=== PATIENT | female | born 2000 | race Caucasian/White ===

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

== ENCOUNTER 2022-04-10 17:33 | Emergency (ER) | payer MEDICAID, SELFPAY ==
[2022-04-10 17:35] VITALS: BP 151/93; PULSE 104; RESP 18; TEMP 36.3; O2SAT 98; BMI 44.9
--- NOTE | 2022-04-10 18:44 | CT_ITS ---
EXAM: CT CERVICAL SPINE WITHOUT INTRAVENOUS CONTRAST CLINICAL INDICATION: Injury/Pain TECHNIQUE: Helically acquired images were obtained of the cervical spine without intravenous contrast. 2D reformatted images were reviewed. This CT exam was performed using one or more of the following dose reduction techniques: automated exposure control, adjustment of the mA and/or kV according to patient size, and/or use of iterative reconstruction technique. This report was created using [employer] report generation technology. COMPARISON: None. FINDINGS: VERTEBRAE: There is mild reversal of the normal cervical lordosis. No fracture. No traumatic subluxation. No discrete lytic or blastic abnormality. Normal craniocervical junction and cervicothoracic junction. DISCS/SPINAL CANAL/NEURAL FORAMINA: Unremarkable. Disc heights are preserved. No critical stenosis. SOFT TISSUES: Unremarkable. No prevertebral soft tissue swelling. LYMPH NODES: Unremarkable. No cervical adenopathy. LUNG APICES: Unremarkable as visualized. Clear. CT/Spine Cervical without Contras IMPRESSION: 1. No acute osseous abnormalities. 2. Reversal of the normal cervical lordosis which may be due to a muscular strain. Electronically Signed: Otoniel San MD at 19:52 EST ,
--- NOTE | 2022-04-10 18:44 | CT_ITS ---
EXAM: CT HEAD WITHOUT INTRAVENOUS CONTRAST CLINICAL INDICATION: Injury/Pain TECHNIQUE: Multiple axial images were obtained of the head without intravenous contrast. This CT exam was performed using one or more of the following dose reduction techniques: automated exposure control, adjustment of the mA and/or kV according to patient size, and/or use of iterative reconstruction technique. This report was created using [employer] report generation technology. COMPARISON: 10/11/2020 FINDINGS: BRAIN AND EXTRA-AXIAL SPACES: Unremarkable. No intra- or extra-axial hemorrhage. No evidence of acute infarct. No intracranial mass or mass effect. There is preservation of the fisher/white matter interface. Posterior fossa structures are unremarkable. Ventricles are appropriate for age. No hydrocephalus. Basal cisterns are patent. BONES/JOINTS: Unremarkable. No discrete lytic or blastic abnormalities. SOFT TISSUES: There is a partially calcified subcutaneous nodule over the high left frontal bone which is stable and measures 1 cm. SINUSES: There is a stable retention cyst or polyp in the right maxillary sinus. MASTOID AIR CELLS: Unremarkable. Clear. ORBITS: Visualized globes, extraocular muscles, optic nerves and retrobulbar fat appear unremarkable. CT/Brain/Head without Contrast IMPRESSION: No acute findings in the head/brain. There has been no change from the reference exam. Electronically Signed: Otoniel San MD at 19:51 EST ,
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
== END 2022-04-10 21:06 | disposition home or self-care (01) ==
PROVIDERS: Emergency Provider Emergency Medicine; PCP Family Medicine; Visit Provider Emergency Medicine
DX: S09.90XA Unspecified injury of head, initial encounter (principal); E66.01 Morbid (severe) obesity due to excess calories; S16.1XXA Strain of muscle, fascia and tendon at neck level, initial encounter; M54.9 Dorsalgia, unspecified; V49.40XA Driver injured in collision with unspecified motor vehicles in traffic accident, initial encounter
CPT/HCPCS: 70450; 72125; 99282

== ENCOUNTER → 2022-09-30 | Outpatient (CLI) | payer MEDICAID, SELFPAY ==
[2022-09-30 12:10] LABS: Absolute Lymphocyte Count 2.37 X10^3/uL (0.83-4.51); Absolute Neutrophil Count 5.2 X10^3/uL (2.0-7.7); Basophil# 0.04 X10^3/uL; Basophil% 0.5 % (0-1); Eosinophil# 0.18 X10^3/uL; Eosinophils% 2.1 % (0-5); Hematocrit 40.9 % (37-47); Hemoglobin 13.5 g/dL (12.0-15.0); Lymphocyte # 2.37 X10^3/ul (0.83-4.51); Lymphocyte % 28.2 % (19-41); Mean Corpuscular Hgb 26.8 pg (27.0-32.0); Mean Corpuscular Volume 81.3 fL (81-99); Mean Platelet Vol. 9.7 fl (6.2-12.0); Monocyte# 0.57 X10^3/uL; Monocyte% 6.8 % (0-10); NRBC Flagged by Analyzer 0 % (0-5); Neutrophil # 5.17 X10^3/uL (2.7-7.7); Neutrophil % 61.7 % (47-70); Platelet Count 338 K/mm3 (150-450); RBC Distribution Width CV 12.6 % (11.6-14.6); RBC Distribution Width SD 36.9 fl (35.1-43.9); Red Blood Count 5.03 M/mm3 (4.2-5.4); White Blood Count 8.4 K/mm3 (4.4-11.0)
[2022-09-30 12:51] LABS: Vitamin B12 478 pg/mL (211-911); Vitamin D,25 Hydroxy 14.3 ng/mL
[2022-09-30 12:59] LABS: ALB/GLOB Ratio 0.7 RATIO (0.9-2.4); AST(SGOT) 25 U/L (15-37); Alanine Aminotransfer ALT/SGPT 35 U/L (13-56); Albumin, Serum 3.2 g/dL (3.2-5.0); Alkaline Phosphatase 67 U/L (45-117); Anion Gap 7 (5-15); BUN 17 mg/dL (7-18); Calcium,Total 8.9 mg/dL (8.5-10.1); Chloride 105 mmol/L (98-107); Cholesterol 201 mg/dL (200); Creatinine, Serum 0.74 mg/dL (0.55-1.02); EST Glomerular Filtration Rate 107 mL/min (>60); Est Glom Filt Rate - Afr Amer 129 mL/min (>60); Globulin 4.4 g/dL (2.2-4.2); Glucose 113 mg/dL (74-106); High Density Lipoprotein 33 mg/dL; Potassium 3.7 mmol/L (3.5-5.1); Protein, Total 7.6 g/dL (6.4-8.2); Sodium Level 139 mmol/L (136-145); T4 Free Direct 1.04 ng/dL (0.76-1.46); Thyroid Stim Hormone (TSH) 3.85 uIU/mL (0.358-3.74); Triglycerides 252 mg/dL; Very Low Density Lipoprotein 50 mg/dL (5-40)
== END | disposition home or self-care (01) ==
LOC: MFPLAB 10:01
PROVIDERS: PCP Family Medicine; Visit Provider Family Medicine
DX: R53.83 Other fatigue (principal); E66.01 Morbid (severe) obesity due to excess calories; E55.9 Vitamin D deficiency, unspecified
CPT/HCPCS: 36415; 80053; 80061; 82306; 82607; 84439; 84443; 85025

== ENCOUNTER 2024-08-25 08:21 | Outpatient (CLI) | payer OTHER, SELFPAY ==
--- NOTE | 2024-08-25 08:28 | RAD_ITS ---
PROCEDURE: KNEE 3 VIEWS 08/25/2024 REASON FOR EXAM: PAIN TECHNIQUE: Three-view right knee series and three-view left knee series (combined dictation). COMPARISON: None. RAD/Knee 3 Views IMPRESSION: No joint effusion is seen on either side. On the left, no arthritic process or joint narrowing is seen. No significant o sseous abnormality is evident. On the right, an osteochondroma projects distally from the medial aspect of the proximal right tibial metaphyseal region. No significant arthritic process or joint narrowing is noted. No other significan t osseous abnormality is seen Reading Location: [place] [id number]
--- NOTE | 2024-08-25 08:28 | RAD_ITS ---
PROCEDURE: HAND MIN 3 VIEWS 08/25/2024 REASON FOR EXAM: PAIN TECHNIQUE: HAND MIN 3 VIEWS COMPARISON: None. RAD/Hand Min 3 Views IMPRESSION: No significant arthritic process or joint narrowing is noted on either side. Satisfactory osseous alignment is seen throughout, bilaterally. No fracture, dislocation, or other significant osseous or joint space abnormali ty is seen on either side. Reading Location: [place] [address]
--- NOTE | 2024-08-25 08:28 | RAD_ITS ---
PROCEDURE: HAND MIN 3 VIEWS 08/25/2024 REASON FOR EXAM: PAIN TECHNIQUE: HAND MIN 3 VIEWS COMPARISON: None. RAD/Hand Min 3 Views IMPRESSION: No significant arthritic process or joint narrowing is noted on either side. Satisfactory osseous alignment is seen throughout, bilaterally. No fracture, dislocation, or other significant osseous or joint space abnormali ty is seen on either side. Reading Location: [place] [id number]
--- NOTE | 2024-08-25 08:28 | RAD_ITS ---
PROCEDURE: KNEE 3 VIEWS 08/25/2024 REASON FOR EXAM: PAIN TECHNIQUE: Three-view right knee series and three-view left knee series (combined dictation). COMPARISON: None. RAD/Knee 3 Views IMPRESSION: No joint effusion is seen on either side. On the left, no arthritic process or joint narrowing is seen. No significant o sseous abnormality is evident. On the right, an osteochondroma projects distally from the medial aspect of the proximal right tibial metaphyseal region. No significant arthritic process or joint narrowing is noted. No other significan t osseous abnormality is seen Reading Location: [place] [id number]
--- NOTE | 2024-08-25 08:28 | RAD_ITS ---
PROCEDURE: HIPS B/L MIN 2 VIEWS W/ PELVIS 08/25/2024 REASON FOR EXAM: HIP PAIN TECHNIQUE: HIPS B/L MIN 2 VIEWS W/ PELVIS COMPARISON: None. RAD/Hips B/L min 2 views w/ Pelvis IMPRESSION: Hips and sacroiliac joints appear symmetric and within the normal range. No anshu int narrowing is seen. No evidence of femoral head osteonecrosis. No fracture site is seen. Reading Location: [place] [id number]
[2024-08-25 11:02] LABS: Hematocrit 40.7 % (37-47); Hemoglobin 13.6 g/dL (12.0-15.0); Immature Granulocytes Count 0.050 X10^3/uL (0.0-0.0); Mean Corp Hgb Conc 33.4 g/dL (32-36); Mean Corpuscular Volume 82.4 fL (81-99); Mean Platelet Vol. 10.5 fl (6.2-12.0); NRBC Flagged by Analyzer 0 % (0-5); Platelet Count 314 K/mm3 (150-450); RBC Distribution Width CV 12.8 % (11.6-14.6); RBC Distribution Width SD 38.1 fl (35.1-43.9); Red Blood Count 4.94 M/mm3 (4.2-5.4); White Blood Count 10.1 K/mm3 (4.4-11.0)
[2024-08-25 12:38] LABS: AST(SGOT) 31 U/L (<=31); Alanine Aminotransfer ALT/SGPT 29 U/L (<=34); Albumin, Serum 4.0 g/dL (3.5-5.0); Alkaline Phosphatase 61 U/L (35-104); Anion Gap 14 (5-15); BUN 13 mg/dL (4-19); BUN/Creat Ratio 18.8 RATIO (10-20); Calcium,Total 9.4 mg/dL (7.6-11.0); Carbon Dioxide 22.9 mmol/L (21.0-32.0); Chloride 101 mmol/L (98-108); Globulin 3.0 g/dL (2.2-4.2); Glucose 112 mg/dL (70-99); Potassium 4.1 mmol/L (3.3-5.1); Vitamin D,25 Hydroxy 18.6 ng/mL (30-100)
[2024-08-26 15:08] LABS: Lyme Scn Total Ab w/Rflx Negative (Negative)
[2024-08-26 16:09] LABS: ANTINUCLEAR ANTIBODIES DIRECT Negative (Negative)
== END 2024-08-25 23:59 | disposition home or self-care (01) ==
LOC: MTLAB 08:25
PROVIDERS: PCP Family Medicine; Referring Provider Family Medicine; Visit Provider Family Medicine
DX: M25.551 Pain in right hip (principal); M25.552 Pain in left hip; M79.641 Pain in right hand; M79.642 Pain in left hand; M25.561 Pain in right knee; M25.562 Pain in left knee; E55.9 Vitamin D deficiency, unspecified; R79.89 Other specified abnormal findings of blood chemistry
CPT/HCPCS: 36415; 73130; 73521; 73562; 80053; 82306; 84439; 84443; 85025; 85652; 86038; 86376; 86431; 86618; 86800

== ENCOUNTER → 2024-12-24 | Outpatient (CLI) | payer OTHER, SELFPAY ==
--- NOTE | 2024-12-24 09:29 | RAD_ITS ---
PROCEDURE: RAD/Lumbar Spine 2 or 3 Views
--- NOTE | 2024-12-24 09:29 | RAD_ITS ---
PROCEDURE: RAD/Cerv Spine 2 or 3 Views
[2024-12-24 13:11] LABS: Vitamin B12 632 pg/mL (180-914)
[2024-12-30 08:09] LABS: VITAMIN B6 35.1 ug/L (3.4-65.2); Vitamin B1, Thiamine 149.3 nmol/L (66.5-200.0)
== END | disposition home or self-care (01) ==
LOC: MTLAB 09:29
PROVIDERS: PCP Family Medicine; Referring Provider Family Medicine; Visit Provider Family Medicine
DX: M54.50 Low back pain, unspecified (principal); M54.2 Cervicalgia; G62.9 Polyneuropathy, unspecified
CPT/HCPCS: 36415; 72040; 72100; 82607; 84207; 84425

== ENCOUNTER → 2024-12-28 | Outpatient (CLI) | payer OTHER, SELFPAY ==
--- NOTE | 2024-12-28 16:34 | RAD_ITS ---
PROCEDURE: RAD/Acute Abdomen Inc Chest
[2024-12-28 17:37] LABS: Hematocrit 40.8 % (37-47); Hemoglobin 13.8 g/dL (12.0-15.0); Immature Granulocytes Count 0.060 X10^3/uL (0.0-0.0); Mean Corp Hgb Conc 33.8 g/dL (32-36); Mean Corpuscular Volume 82.9 fL (81-99); Mean Platelet Vol. 10.2 fl (6.2-12.0); NRBC Flagged by Analyzer 0 % (0-5); Platelet Count 403 K/mm3 (150-450); RBC Distribution Width CV 12.4 % (11.6-14.6); RBC Distribution Width SD 37.5 fl (35.1-43.9); Red Blood Count 4.92 M/mm3 (4.2-5.4); White Blood Count 13.1 K/mm3 (4.4-11.0)
[2024-12-28 18:15] LABS: AST(SGOT) 33 U/L (<=31); Alanine Aminotransfer ALT/SGPT 36 U/L (<=34); Albumin, Serum 4.3 g/dL (3.5-5.0); Alkaline Phosphatase 62 U/L (35-104); Anion Gap 11 (5-15); BUN 15 mg/dL (4-19); BUN/Creat Ratio 21.6 RATIO (10-20); Calcium,Total 9.4 mg/dL (7.6-11.0); Carbon Dioxide 25.9 mmol/L (21.0-32.0); Chloride 99 mmol/L (98-108); Globulin 3.0 g/dL (2.2-4.2); Glucose 90 mg/dL (70-99); Magnesium 2.0 mg/dL (1.5-2.2); Potassium 4.4 mmol/L (3.3-5.1)
[2024-12-30 17:08] LABS: Immunoglobulin A 207 mg/dL (87-352)
[2025-01-02 16:08] LABS: Egg, Whole 0.10 kU/L (Class 0/I); Mussels <0.10 kU/L (Class 0)
== END | disposition home or self-care (01) ==
LOC: MTLAB 16:34
PROVIDERS: PCP Family Medicine; Referring Provider Family Medicine; Visit Provider Family Medicine
DX: R10.9 Unspecified abdominal pain (principal); R19.7 Diarrhea, unspecified
CPT/HCPCS: 36415; 74022; 80053; 82784; 83516; 83735; 84443; 85025; 86003; 86005; 86255

== ENCOUNTER → 2025-01-18 | Outpatient (CLI) | payer OTHER, SELFPAY ==
[2025-01-21 11:08] LABS: Fats, Neutral Normal (.); Fats, Total Normal (.)
[2025-01-23 23:07] LABS: Pancreatic Elastase, Fecal > 800 (>200)
== END | disposition home or self-care (01) ==
LOC: LAB 13:10
PROVIDERS: PCP Family Medicine; Referring Provider Family Medicine; Visit Provider Family Medicine
DX: R19.7 Diarrhea, unspecified (principal)
CPT/HCPCS: 82653; 82705; 83630; 87177; 87209; 87506

== ENCOUNTER 2025-02-05 01:05 | Emergency (ER) | payer OTHER, SELFPAY ==
[2025-02-05 01:05] VITALS: PULSE 107; RESP 14; TEMP 36.1; O2SAT 100; BMI 53.1
--- NOTE | 2025-02-05 01:11 | ED.RN ---
unclear what the pt may have come in contact with as well as what they allergic symptoms are.
[2025-02-05 01:13] VITALS: BP 140/97
--- OUTSIDE RECORDS SUMMARY | 2025-02-05 01:20 | XMS RPT_ITS | CCD ---
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 Info: 3016-3 - TSH Performed By: #### L 501.9520 ####[facility] [address] [place], [place], [address] Cerv Spine 2 or 3 Viewson Cerv Spine 2 or [address] [facility] Imaging Services [address] [place], [place] [address] Cerv Spine 2 or 3 Views MR#: [id number] Acct: [id number] Name: TEMI SCHROEDER Rep #: [id number] : 2000 F 24 From: Verna Mercedes PCP: Dr. Kofi Stapleton MD Status: REG CLI Study: Cerv Spine 2 or 3 Views Date of Exam: 12/24/24 Exam# [id number] Ordering Dr: Kofi Stapleton MD PROCEDURE: CERV SPINE 2 OR 3 VIEWS 12/24/2024 REASON FOR EXAM: PAIN, NEUROPATHY TECHNIQUE: Procedure Code: RADSPCL Modality: DX Procedure: CERV SPINE 2 OR 3 VIEWS FINDINGS: No acute cervical fracture or subluxations. No significant degenerative changes No acute soft tissue abnormalities. No radiographic foreign body. RAD/Cerv Spine 2 or 3 Views IMPRESSION: No acute cervical fracture or subluxations. Consider CT if the symptoms persist. Reading Location: [facility] CC: Dr. Kofi Stapleton MD Pathology Technologist: Signed Normal [facility] Lumbar Spine 2 or 3 Viewson 12-24-2024 Lumbar Spine 2 or [address] [facility] Imaging Services [address] [place], [place] [address] Lumbar Spine 2 or 3 Views MR#: [id number] Acct: [id number] Name: TEMI SCHROEDER Rep #: [id number] : 2000 F 24 From: Randy Mercedes PCP: Dr. Kofi Stapleton MD Status: REG CLI Study: Lumbar Spine 2 or 3 Views Date of Exam: Exam# [id number] Ordering Dr: Kofi Stapleton MD PROCEDURE: LUMBAR SPINE 2 OR 3 VIEWS 12/24/2024 REASON FOR EXAM: PAIN, NEUROPATHY TECHNIQUE: Procedure Code: RADSPLL Modality: DX Procedure: LUMBAR SPINE 2 OR 3 VIEWS COMPARISON: None. RAD/Lumbar Spine 2 or 3 Views IMPRESSION: A mild degree of lumbar gentle dextro rotoscoliosis is seen. No significant degenerative disc disease or disc space narrowing is noted. No evidence of spondylolysis or spondylolisthesis. Sacroiliac joints appear symmetric and within the normal range. Reading Location: [place] [address] CC: Dr. Kofi Stapleton MD Pathology Technologist: Signed Normal [facility] Vitamin B12on 12-24-2024 Cobalamin (Vitamin B12) [Mass/Vol] 632 pg/mL Normal 180-914 [facility] Comment on above: Performed By: #### L 3300.8000, L3300.8200, L503.0106 ####[facility] [address] [place], [place], [address] ANTINUCLEAR ANTIBODIES DIREC Ton 08-26-2024 DALIA,DIRECT Negative Normal Negative [facility] Comment on above: Order Comment: Order Date: 08/25/24Order Info: 0270-1 - ANAComments: with comprehensive reflex if positive Result Comment: Perf ormed at: [facility] [id number] [place], [place] [id number] Accounts Supervisor: Devin Carranza PhD, Phone: [phone] Performed By: #### L 3100.5475, L501.9520, L505.7010, L506.0400, L7000.5300, L100.0100, L500.4050 ####[facility] [address] [place], [place], [id number] Lyme Screen W/Reflex WBon LYME SCREEN Ab Negative Normal Negative [facility] Comment on above: Order Comment: Order Date: 08/25/24Order Info: 9586-9 - LYMS Result Comment: Lyme antibodies not detected. Reflex testing is not indicated. No laboratory evidence of infection with B. burgdorferi (Lyme disease). Negative results may occur in patients recently infected (less than or equal to 14 days) with B. burgdorferi. If recent infection is suspected, repeat testing on a new sample collected in 7 to 14 days is recommended. Performed By: #### L 3100.5475, L501.9520, L505.7010, L506.0400, L7000.5300, L100.0100, L500.4050 ####[facility] [address] [place], [place], [address] Thyroid Antibodieson 025 TG AB 1.1 IU/mL High 0.0-0.9 [facility] Comment on above: Order Comment: Order Date: 08/25/24Order Info: 9586-9 - LYMS Result Comment: Thyr oglobulin Antibody measured by [facility] It should be noted that the presence of thyroglobulin antibodies may not be pathogenic nor diagnostic, especially at very low levels. The assay electrotherapist has found that four percent of individuals without evidence of thyroid disease or autoimmunity will have positive TgAb levels up to 4 IU/mL. Performed at: [facility] [id number] [place], [place] [id number] Accounts Supervisor: Devin Carranza PhD, Phone: [phone] Performed By: #### L 101.9900, L506.1001, L3300.6750 ####[facility] [address] [place], [place], [id number] THYR PEROX AB < 9 Normal 0-34 [facility] Comment on above: Order Comment: Order Date: 08/25/24Order Info: 9586-9 - LYMS Performed By: #### L 101.9900, L506.1001, L3300.6750 ####[facility] [address] [place], [place], [address] Absolute lymphocyte countOrd ered By: Kofi Stapleton on 08-25-2024 Lymphocytes Auto (Unsp spec) [#/Vol] 2.60 10*3/uL 0.83-4.51 [facility] Absolute neutrophil countOrd ered By: Kofi Stapleton on 08-25-2024 Neutrophils (Bld) [#/Vol] 6.5 10*3/uL 2.0-7.7 [facility] Anion gap in Serum or Plasma Ordered By: Kofi Stapleton on 08-25-2024 Anion gap [Moles/Vol] 14 mmol/L 5-15 [facility] Automated lymphocyte count a s percentage of total leukocytesOrdered By: Kofi Stapleton on 08-25-2024 Lymphocytes/100 WBC Auto (Unsp spec) 25.7 % 19-41 [facility] BUN/creatinine ratioOrdered By: Kofi Stapleton on 08-25-2024 Urea nitrogen/Creatinine [Mass ratio] 18.8 mg/mg 10-20 [facility] Basophil percentageOrdered B y: Kofi Stapleton on 08-25-2024 Basophils/100 WBC (Bld) 0.6 % 0-1 [facility] Bilirubin, totalOrdered By: Kofi Stapleton on 08-25-2024 Bilirubin [Mass/Vol] 0.19 mg/dL 0.00-1.30 [facility] CBC W/Diff, Automatedon Absolute Lymph 2.60 X10 3/uL Normal 0.83-4.51 [facility] Comment on above: Order Comment: Order Date: 08/25/24Order Info: 0184-1 - CBCD Performed By: #### L 3100.5475, L501.9520, L505.7010, L506.0400, L7000.5300, L100.0100, L500.4050 ####[facility] [address] [place], [address] Absolute Neut 6.5 X10 3/uL Normal 2.0-7.7 [facility] Comment on above: Order Comment: Order Date: 08/25/24Order Info: 0184-1 - CBCD Performed By: #### L 3100.5475, L501.9520, L505.7010, L506.0400, L7000.5300, L100.0100, L500.4050 ####[facility] [address] [place], [address] Basophils/100 WBC (Bld) 0.6 % Normal 0-1 [facility] Comment on above: Order Comment: Order Date: 08/25/24Order Info: 0184-1 - CBCD Performed By: #### L 3100.5475, L501.9520, L505.7010, L506.0400, L7000.5300, L100.0100, L500.4050 ####[facility] [address] [place], [address] Eosinophils/100 WBC (Bld) 2.7 % Normal 0-5 [facility] Comment on above: Order Comment: Order Date: 08/25/24Order Info: 0184-1 - CBCD Performed By: #### L 3100.5475, L501.9520, L505.7010, L506.0400, L7000.5300, L100.0100, L500.4050 ####[facility] [address] [place], [address] Erythrocyte distribution width (RBC) [Ratio] 12.8 % Normal 11.6-14.6 [facility] Comment on above: Order Comment: Order Date: 08/25/24Order Info: 0184-1 - CBCD Performed By: #### L 3100.5475, L501.9520, L505.7010, L506.0400, L7000.5300, L100.0100, L500.4050 ####[facility] [address] [place], [address] Hematocrit (Bld) [Volume fraction] 40.7 % Normal 37-47 [facility] Comment on above: Order Comment: Order Date: 08/25/24Order Info: 0184-1 - CBCD Performed By: #### L 3100.5475, L501.9520, L505.7010, L506.0400, L7000.5300, L100.0100, L500.4050 ####[facility] [address] [place], [address] Hemoglobin (Bld) [Mass/Vol] 13.6 g/dL Normal 12.0-15.0 [facility] Comment on above: Order Comment: Order Date: 08/25/24Order Info: 0184-1 - CBCD Performed By: #### L 3100.5475, L501.9520, L505.7010, L506.0400, L7000.5300, L100.0100, L500.4050 ####[facility] [address] [place], [address] IG% 0.500 Normal 0.0-0.9 [facility] Comment on above: Order Comment: Order Date: 08/25/24Order Info: 0184-1 - CBCD Result Comment: IG% - Immature Granulocytes (promyelocytes, myelocytes and metamyelocytes) > 1% indicates that a LEFT SHIFT is Present. Performed By: #### L 3100.5475, L501.9520, L505.7010, L506.0400, L7000.5300, L100.0100, L500.4050 ####[facility] [address] [place], [address] Lymphocytes/100 WBC (Bld) 25.7 % Normal 19-41 [facility] Comment on above: Order Comment: Order Date: 08/25/24Order Info: 0184-1 - CBCD Performed By: #### L 3100.5475, L501.9520, L505.7010, L506.0400, L7000.5300, L100.0100, L500.4050 ####[facility] [address] [place], [address] MCH (RBC) [Entitic mass] 27.5 pg Normal 27.0-32.0 [facility] Comment on above: Order Comment: Order Date: 08/25/24Order Info: 0184-1 - CBCD Performed By: #### L 3100.5475, L501.9520, L505.7010, L506.0400, L7000.5300, L100.0100, L500.4050 ####[facility] [address] [place], [address] MCHC (RBC) [Mass/Vol] 33.4 g/dL Normal 32-36 [facility] Comment on above: Order Comment: Order Date: 08/25/24Order Info: 0184-1 - CBCD Performed By: #### L 3100.5475, L501.9520, L505.7010, L506.0400, L7000.5300, L100.0100, L500.4050 ####[facility] [address] [place], [address] MCV (RBC) [Entitic vol] 82.4 fL Normal 81-99 [facility] Comment on above: Order Comment: Order Date: 08/25/24Order Info: 0184-1 - CBCD Performed By: #### L 3100.5475, L501.9520, L505.7010, L506.0400, L7000.5300, L100.0100, L500.4050 ####[facility] [address] [place], [address] Monocytes/100 WBC (Bld) 6.7 % Normal 0-10 [facility] Comment on above: Order Comment: Order Date: 08/25/24Order Info: 0184-1 - CBCD Performed By: #### L 3100.5475, L501.9520, L505.7010, L506.0400, L7000.5300, L100.0100, L500.4050 ####[facility] [address] [place], [address] Neutrophils/100 WBC (Bld) 63.8 % Normal 47-70 [facility] Comment on above: Order Comment: Order Date: 08/25/24Order Info: 0184-1 - CBCD Performed By: #### L 3100.5475, L501.9520, L505.7010, L506.0400, L7000.5300, L100.0100, L500.4050 ####[facility] [address] [place], [address] Nucleated RBC (Bld) [#/Vol] 0 10*3/uL Normal 0-5 [facility] Comment on above: Order Comment: Order Date: 08/25/24Order Info: 0184-1 - CBCD Performed By: #### L 3100.5475, L501.9520, L505.7010, L506.0400, L7000.5300, L100.0100, L500.4050 ####[facility] [address] [place], [address] Platelet mean volume (Bld) [Entitic vol] 10.5 fL Normal 6.2-12.0 [facility] Comment on above: Order Comment: Order Date: 08/25/24Order Info: 0184-1 - CBCD Performed By: #### L 3100.5475, L501.9520, L505.7010, L506.0400, L7000.5300, L100.0100, L500.4050 ####[facility] [address] [place], [address] Platelets (Bld) [#/Vol] 314 10*3/uL Normal 150-450 [facility] Comment on above: Order Comment: Order Date: 08/25/24Order Info: 0184-1 - CBCD Performed By: #### L 3100.5475, L501.9520, L505.7010, L506.0400, L7000.5300, L100.0100, L500.4050 ####[facility] [address] [place], [address] RBC (Bld) [#/Vol] 4.94 10*6/uL Normal 4.2-5.4 [facility] Comment on above: Order Comment: Order Date: 08/25/24Order Info: 0184-1 - CBCD Performed By: #### L 3100.5475, L501.9520, L505.7010, L506.0400, L7000.5300, L100.0100, L500.4050 ####[facility] [address] [place], [address] RDW SD 38.1 fl Normal 35.1-43.9 [facility] Comment on above: Order Comment: Order Date: 08/25/24Order Info: 0184-1 - CBCD Performed By: #### L 3100.5475, L501.9520, L505.7010, L506.0400, L7000.5300, L100.0100, L500.4050 ####[facility] [address] [place], [address] WBC (Bld) [#/Vol] 10.1 10*3/uL Normal 4.4-11.0 [facility] Comment on above: Order Comment: Order Date: 08/25/24Order Info: 0184-1 - CBCD Performed By: #### L 3100.5475, L501.9520, L505.7010, L506.0400, L7000.5300, L100.0100, L500.4050 ####[facility] [address] [place], [address] Carbon dioxide, total [Moles /volume] in Central venous bloodOrdered By: Kofi Stapleton on 08-25-2024 CO2 [Moles/Vol] 22.9 mmol/L 21.0-32.0 [facility] Chloride assayOrdered By: Shasha Stapleton on 08-25-2024 Chloride [Moles/Vol] 101 mmol/L 98-108 [facility] Comprehensive Metabolic Prof ilon 08-25-2024 Albumin [Mass/Vol] 4.0 g/dL Normal 3.5-5.0 [facility] Comment on above: Order Comment: Order Date: 08/25/24Order Info: 0786-1 - CMPOrder Info: 3016-3 - TSHOrder Info: 72694-9 - RAOrder Info: 3024-7 - U5Muvpr comprehensive reflex if positive Performed By: #### L 3100.5475, L501.9520, L505.7010, L506.0400, L7000.5300, L100.0100, L500.4050 ####[facility] [address] [place], [address] Albumin/Globulin [Mass ratio] 1.3 {ratio} Normal 0.9-2.4 [facility] Comment on above: Order Comment: Order Date: 08/25/24Order Info: 0786-1 - CMPOrder Info: 3016-3 - TSHOrder Info: 27969-1 - RAOrder Info: 3024-7 - N5Qsudz comprehensive reflex if positive Performed By: #### L 3100.5475, L501.9520, L505.7010, L506.0400, L7000.5300, L100.0100, L500.4050 ####[facility] [address] [place], [place], [phone]) ALK PHOS 61 U/L Normal 35-104 [facility] Comment on above: Order Comment: Order Date: 08/25/24Order Info: 0786-1 - CMPOrder Info: 3015-3 - TSHOrder Info: 17180-2 - RAOrder Info: 302-7 - F9Mdajw comprehensive reflex if positive Performed By: #### L 3100.5475, L501.9520, L505.7010, L506.0400, L7000.5300, L100.0100, L500.4050 ####[facility] [address] [place], [address] ALT [Catalytic activity/Vol] 29 U/L Normal <=34 [facility] Comment on above: Order Comment: Order Date: 08/25/24Order Info: 785-1 - CMPOrder Info: 3 - TSHOrder Info: [id number] - RAOrder Info: 302-7 - S4Wyveg comprehensive reflex if positive Performed By: #### L 3100.5475, L501.9520, L505.7010, L506.0400, L7000.5300, L100.0100, L500.4050 ####[facility] [address] [place], [address] AST [Catalytic activity/Vol] 31 U/L Normal <=31 [facility] Comment on above: Order Comment: Order Date: 08/25/24Order Info: 0786-1 - CMPOrder Info: 3 - TSHOrder Info: [id number] - RAOrder Info: 302-7 - R3Mtxud comprehensive reflex if positive Performed By: #### L 3100.5475, L501.9520, L505.7010, L506.0400, L7000.5300, L100.0100, L500.4050 ####[facility] [address] [place], [address] Bilirubin [Mass/Vol] 0.19 mg/dL Normal 0.00-1.30 [facility] Comment on above: Order Comment: Order Date: 08/25/24Order Info: 86-1 - CMPOrder Info: 3 - TSHOrder Info: [id number] - RAOrder Info: 3024-7 - K7Jhvcr comprehensive reflex if positive Performed By: #### L 3100.5475, L501.9520, L505.7010, L506.0400, L7000.5300, L100.0100, L500.4050 ####[facility] [address] [place], [address] BUN/CRE 18.8 RATIO Normal 10-20 [facility] Comment on above: Order Comment: Order Date: 08/25/24Order Info: 785-1 - CMPOrder Info: 3 - TSHOrder Info: [id number] - RAOrder Info: 3024-7 - D9Ddtmh comprehensive reflex if positive Performed By: #### L 3100.5475, L501.9520, L505.7010, L506.0400, L7000.5300, L100.0100, L500.4050 ####[facility] [address] [place], [address] Calcium [Mass/Vol] 9.4 mg/dL Normal 7.6-11.0 [facility] Comment on above: Order Comment: Order Date: 08/25/24Order Info: 785-1 - CMPOrder Info: 3 - TSHOrder Info: 04543-7 - RAOrder Info: 3024-7 - X3Kmryw comprehensive reflex if positive Performed By: #### L 3100.5475, L501.9520, L505.7010, L506.0400, L7000.5300, L100.0100, L500.4050 ####[facility] [address] [place], [address] Chloride [Moles/Vol] 101 mmol/L Normal 98-108 [facility] Comment on above: Order Comment: Order Date: 08/25/24Order Info: 86-1 - CMPOrder Info: 3 - TSHOrder Info: [id number] - RAOrder Info: 3024-7 - V9Wgyta comprehensive reflex if positive Performed By: #### L 3100.5475, L501.9520, L505.7010, L506.0400, L7000.5300, L100.0100, L500.4050 ####[facility] [address] [place], [address] CO2 [Moles/Vol] 22.9 mmol/L Normal 21.0-32.0 [facility] Comment on above: Order Comment: Order Date: 08/25/24Order Info: 0786-1 - CMPOrder Info: 3 - TSHOrder Info: [id number] - RAOrder Info: 3024-7 - D2Aydoy comprehensive reflex if positive Performed By: #### L 3100.5475, L501.9520, L505.7010, L506.0400, L7000.5300, L100.0100, L500.4050 ####[facility] [address] [place], [address] Creatinine [Mass/Vol] 0.67 mg/dL Low 0.70-1.20 [facility] Comment on above: Order Comment: Order Date: 08/25/24Order Info: [id number] - CMPOrder Info: 3 - TSHOrder Info: [id number] - RAOrder Info: 3024-7 - I7Xzsyr comprehensive reflex if positive Performed By: #### L 3100.5475, L501.9520, L505.7010, L506.0400, L7000.5300, L100.0100, L500.4050 ####[facility] [address] [place], [address] GAP 14 Normal 5-15 [facility] Comment on above: Order Comment: Order Date: 08/25/24Order Info: [id number] - CMPOrder Info: 3 - TSHOrder Info: [id number] - RAOrder Info: 3024-7 - F7Bmzrq comprehensive reflex if positive Performed By: #### L 3100.5475, L501.9520, L505.7010, L506.0400, L7000.5300, L100.0100, L500.4050 ####[facility] [address] [place], [address] GFR/1.73 sq M.predicted among non-blacks MDRD (S/P/Bld) [Vol rate/Area] 128 mL/min/{1.73_m2} Normal >60 [facility] Comment on above: Order Comment: Order Date: 08/25/24Order Info: [id number] - CMPOrder Info: [id number] - TSHOrder Info: [id number] - RAOrder Info: 3024-7 - H4Fpxpd comprehensive reflex if positive Result Comment: mL/m in/1.73m2 CKD-EPI Creatinine Equation (2020) Performed By: #### L 3100.5475, L501.9520, L505.7010, L506.0400, L7000.5300, L100.0100, L500.4050 ####[facility] [address] [place], [address] Globulin (S) [Mass/Vol] 3.0 g/dL Normal 2.2-4.2 [facility] Comment on above: Order Comment: Order Date: 08/25/24Order Info: 0786-1 - CMPOrder Info: [id number] - TSHOrder Info: [id number] - RAOrder Info: 3024-7 - K7Jgynf comprehensive reflex if positive Performed By: #### L 3100.5475, L501.9520, L505.7010, L506.0400, L7000.5300, L100.0100, L500.4050 ####[facility] [address] [place], [address] Glucose [Mass/Vol] 112 mg/dL High 70-99 [facility] Comment on above: Order Comment: Order Date: 08/25/24Order Info: 0786-1 - CMPOrder Info: [id number] - TSHOrder Info: [id number] - RAOrder Info: 302-7 - B7Axkbt comprehensive reflex if positive Performed By: #### L 3100.5475, L501.9520, L505.7010, L506.0400, L7000.5300, L100.0100, L500.4050 ####[facility] [address] [place], [address] Potassium [Moles/Vol] 4.1 mmol/L Normal 3.3-5.1 [facility] Comment on above: Order Comment: Order Date: 08/25/24Order Info: 785-1 - CMPOrder Info: [id number] - TSHOrder Info: [id number] - RAOrder Info: 3027 - Q3Bjzet comprehensive reflex if positive Performed By: #### L 3100.5475, L501.9520, L505.7010, L506.0400, L7000.5300, L100.0100, L500.4050 ####[facility] [address] [place], [address] Sodium [Moles/Vol] 138 mmol/L Normal 133-145 [facility] Comment on above: Order Comment: Order Date: 08/25/24Order Info: 785-1 - CMPOrder Info: 3 - TSHOrder Info: [id number] - RAOrder Info: 7 - Z9Tdxju comprehensive reflex if positive Performed By: #### L 3100.5475, L501.9520, L505.7010, L506.0400, L7000.5300, L100.0100, L500.4050 ####[facility] [address] [place], [address] T PROT 7.0 g/dL Normal 5.9-8.4 [facility] Comment on above: Order Comment: Order Date: 08/25/24Order Info: 785-1 - CMPOrder Info: [id number] - TSHOrder Info: [id number] - RAOrder Info: 302-7 - G8Zlmzc comprehensive reflex if positive Performed By: #### L 3100.5475, L501.9520, L505.7010, L506.0400, L7000.5300, L100.0100, L500.4050 ####[facility] [address] [place], [address] Urea nitrogen [Mass/Vol] 13 mg/dL Normal 4-19 [facility] Comment on above: Order Comment: Order Date: 08/25/24Order Info: 0786-1 - CMPOrder Info: [id number] - TSHOrder Info: [id number] - RAOrder Info: 3024-7 - K6Parqi comprehensive reflex if positive Performed By: #### L 3100.5475, L501.9520, L505.7010, L506.0400, L7000.5300, L100.0100, L500.4050 ####[facility] [address] [place], [address] Eosinophil percentageOrdered By: Kofi Stapleton on 08-25-2024 Eosinophils/100 WBC (Bld) 2.7 % 0-5 [facility] Erythrocyte Sed Rateon 08-25 SED RATE 24 mm/hr Normal 0-30 [facility] Comment on above: Order Comment: Order Date: 08/25/24 Order Info: 0184-1 - CBCD Performed By: #### L 101.9900, L506.1001, L3300.6750 #### [facility] Laboratory [address] [place], [place], [address] Erythrocyte distribution wid th ratioOrdered By: Kofi Stapleton on 08-25-2024 Erythrocyte distribution width (RBC) [Ratio] 12.8 % 11.6-14.6 [facility] Erythrocyte distribution wid th standard deviationOrdered By: Kofi Stapleton on 08-25-2024 Erythrocyte distribution width (RBC) [Ratio] 38.1 fl 35.1-43.9 [facility] Erythrocyte sedimentation ra teOrdered By: Kofi Stapleton on 08-25-2024 ESR (Bld) [Velocity] 24 mm/h 0-30 [facility] Glomerular filtration rate ( GFR) estimation/1.73 sq m using serum, plasma, or whole bOrdered By: Kofi Stapleton on 08-25-2024 GFR/1.73 sq M.predicted among non-blacks MDRD (S/P/Bld) [Vol rate/Area] 128 mL/min/{1.73_m2} >60 [facility] Comment on above: mL/min/1.73m2 CKD-EP I Creatinine Equation (2020) Hand Min 3 Viewson Hand Min 3 Views [facility] [address] [place], [place] [id number] Hand Min 3 Views MR#: [id number] Acct: [id number] Name: TEMI SCHROEDER Rep #: [id number] : 2000 F 23 From: Randy Mercedes PCP: Dr. Kofi Stapleton MD Status: REG CLI Study: Hand Min 3 Views Date of Exam: 08/25/24 Exam# [id number] Ordering Dr: Kofi Stapleton MD PROCEDURE: HAND MIN 3 VIEWS 08/25/2024 REASON FOR EXAM: PAIN TECHNIQUE: HAND MIN 3 VIEWS COMPARISON: None. RAD/Hand Min 3 Views IMPRESSION: No significant arthritic process or joint narrowing is noted on either side. Satisfactory osseous alignment is seen throughout, bilaterally. No fracture, dislocation, or other significant osseous or joint space abnormality is seen on either side. Reading Location: [place] [address] CC: Dr. Kofi Stapleton MD Pathology Technologist: Signed Normal [facility] Hand Min 3 Views [facility] [address] [place], [place] [id number] Hand Min 3 Views MR#: [id number] Acct: [id number] Name: TEMI SCHROEDER Rep #: [id number] : 2000 F 23 From: Randy Mercedes PCP: Dr. Kofi Stapleton MD Status: REG CLI Study: Hand Min 3 Views Date of Exam: 08/25/24 Exam# [id number] Ordering Dr: Kofi Stapleton MD PROCEDURE: HAND MIN 3 VIEWS 08/25/2024 REASON FOR EXAM: PAIN TECHNIQUE: HAND MIN 3 VIEWS COMPARISON: None. RAD/Hand Min 3 Views IMPRESSION: No significant arthritic process or joint narrowing is noted on either side. Satisfactory osseous alignment is seen throughout, bilaterally. No fracture, dislocation, or other significant osseous or joint space abnormality is seen on either side. Reading Location: [place] [address] CC: Dr. Kofi Stapleton MD Pathology Technologist: Signed Normal [facility] Hematocrit Auto (Bld) [Volum e fraction]Ordered By: Kofi Stapleton on 08-25-2024 Hematocrit (Bld) [Volume fraction] 40.7 % 37-47 [facility] Hemoglobin measurementOrdere d By: Kofi Stapleton on 08-25-2024 Hemoglobin (Bld) [Mass/Vol] 13.6 g/dL 12.0-15.0 [facility] Hips B/L min 2 views w/ Pelv kathrin 08-25-2024 Hips B/L min 2 views w/ Pelvis [facility] [address] [place] [address] Hips B/L min 2 views w/ Pelvis MR#: [id number] Acct: [id number] Name: TEMI SCHROEDER Rep #: [id number] : 2000 F 23 From: Randy Mercedes PCP: Dr. Kofi Stapelton MD Status: REG CLI Study: Hips B/L min 2 views w/ Pelvis Date of Exam: 0 08/25/24 Exam# [id number] Ordering Dr: Kofi Stapleton MD PROCEDURE: HIPS B/L MIN 2 VIEWS W/ PELVIS 08/25/2024 REASON FOR EXAM: HIP PAIN TECHNIQUE: HIPS B/L MIN 2 VIEWS W/ PELVIS COMPARISON: None. RAD/Hips B/L min 2 views w/ Pelvis IMPRESSION: Hips and sacroiliac joints appear symmetric and within the normal range. No joint narrowing is seen. No evidence of femoral head osteonecrosis. No fracture site is seen. Reading Location: [place] [address] CC: Dr. Kofi Stapleton MD Pathology Technologist: Signed Normal [facility] Immature granulocytes/100 WB C Auto (Bld)Ordered By: Kofi Stapleton on 08-25-2024 Immature granulocytes/100 WBC (Bld) 0.500 % 0.0-0.9 [facility] Comment on above: IG% - Immature Granu locytes (promyelocytes, myelocytes and metamyelocytes) > 1% indicates that a LEFT SHIFT is Present. Knee 3 Viewson 08-25-2024 Knee 3 Views [facility] [address] [place], [place] [id number] Knee 3 Views MR#: [id number] Acct: [id number] Name: TEMI SCHROEDER Rep #: [id number] : 2000 F 23 From: Randy Mercedes PCP: Dr. Kofi Stapleton MD Status: REG CLI Study: Knee 3 Views Date of Exam: 08/25/24 Exam# [id number] Ordering Dr: Kofi Stapleton MD PROCEDURE: KNEE 3 VIEWS 08/25/2024 REASON FOR EXAM: PAIN TECHNIQUE: Three-view right knee series and three-view left knee series (combined dictation). COMPARISON: None. RAD/Knee 3 Views IMPRESSION: No joint effusion is seen on either side. On the left, no arthritic process or joint narrowing is seen. No significant osseous abnormality is evident. On the right, an osteochondroma projects distally from the medial aspect of the proximal right tibial metaphyseal region. No significant arthritic process or joint narrowing is noted. No other significant osseous abnormality is seen Reading Location: [place] [address] CC: Dr. Kofi Stapleton MD Pathology Technologist: Signed Normal [facility] Knee 3 Views [facility] [address] [place] [address] Knee 3 Views MR#: [id number] Acct: [id number] Name: TEMI SCHROEDER Rep #: [id number] : 2000 F 23 From: Randy Mercedes PCP: Dr. Kofi Stapleton MD Status: REG CLI Study: Knee 3 Views Date of Exam: 08/25/24 Exam# [id number] Ordering Dr: Kofi Stapleton MD PROCEDURE: KNEE 3 VIEWS 08/25/2024 REASON FOR EXAM: PAIN TECHNIQUE: Three-view right knee series and three-view left knee series (combined dictation). COMPARISON: None. RAD/Knee 3 Views IMPRESSION: No joint effusion is seen on either side. On the left, no arthritic process or joint narrowing is seen. No significant osseous abnormality is evident. On the right, an osteochondroma projects distally from the medial aspect of the proximal right tibial metaphyseal region. No significant arthritic process or joint narrowing is noted. No other significant osseous abnormality is seen Reading Location: [place] [address] CC: Dr. Kofi Stapleton MD Pathology Technologist: Signed Normal [facility] Laboratory - Chemistry and C hemistry - challengeOrdered By: Kofi Stapleton on 08-25-2024 AST [Catalytic activity/Vol] 31 U/L <32 [facility] MCV (mean corpuscular volume ) determinationOrdered By: Kofi Stapleton on 08-25-2024 MCV (RBC) [Entitic vol] 82.4 fL 81-99 [facility] Mean corpuscular hemoglobin (MCH) determinationOrdered By: Kofi Stapleton on 08-25-2024 MCH (RBC) [Entitic mass] 27.5 pg 27.0-32.0 [facility] Mean corpuscular hemoglobin concentration (MCHC) determinationOrdered By: Kofi Stapleton on 08-25-2024 MCHC (RBC) [Mass/Vol] 33.4 g/dL 32-36 [facility] Mean platelet volume determi nationOrdered By: Kofi Stapleton on 08-25-2024 Platelet mean volume (Bld) [Entitic vol] 10.5 fL 6.2-12.0 [facility] Monocyte percentageOrdered B y: Kofi Stapleton on 08-25-2024 Monocytes/100 WBC (Bld) 6.7 % 0-10 [facility] Neutrophil percentageOrdered By: Kofi Stapleton on 08-25-2024 Neutrophils/100 WBC (Bld) 63.8 % 47-70 [facility] Nucleated red blood cell per centageOrdered By: Kofi Stapleton on 08-25-2024 Nucleated RBC/100 WBC (Bld) [Ratio] 0 % 0-5 [facility] Platelet countOrdered By: Shasha Stapleton on 08-25-2024 Platelets (Bld) [#/Vol] 314 10*3/uL 150-450 [facility] Potassium measurement (mass/ volume)Ordered By: Kofi Stapleton on 08-25-2024 Potassium (Unsp spec) [Mass/Vol] 4.1 mmol/L 3.3-5.1 [facility] RBC Auto (Bld) [#/Vol]Ordere d By: Kofi Stapleton on 08-25-2024 RBC (Bld) [#/Vol] 4.94 10*6/uL 4.2-5.4 [facility] Rheumatoid Factoron 08-26-19 RHEUMATOID FAC < 10.0 Normal <15 [facility] Comment on above: Order Comment: Order Date: 08/25/24Order Info: [id number] - CMPOrder Info: [id number] - TSHOrder Info: [id number] - RAOrder Info: 3024-7 - T4F Performed By: #### L 3100.5475, L501.9520, L505.7010, L506.0400, L7000.5300, L100.0100, L500.4050 ####[facility] [address] [place], [place], [id number] Serum creatinine measurement (mass/volume)Ordered By: Kofi Stapleton on 08-25-2024 Creatinine [Mass/Vol] 0.67 mg/dL Low 0.70-1.20 [facility] Serum globulin measurementOr dered By: Kofi Stapleton on 08-25-2024 Globulin (S) [Mass/Vol] 3.0 g/dL 2.2-4.2 [facility] Serum glucose measurement (m ass/volume)Ordered By: Kofi Stapleton on 08-25-2024 Glucose [Mass/Vol] 112 mg/dL High 70-99 [facility] Serum or plasma alanine guevara otransferase (ALT) measurementOrdered By: Kofi Stapleton on 08-25-2024 ALT [Catalytic activity/Vol] 29 U/L <35 [facility] Serum or plasma albumin monico urement (mass/volume)Ordered By: Kofi Stapleton on 08-25-2024 Albumin [Mass/Vol] 4.0 g/dL 3.5-5.0 [facility] Serum or plasma albumin/glob ulin mass ratioOrdered By: Kofi Stapleton on 08-25-2024 Albumin/Globulin [Mass ratio] 1.3 {ratio} 0.9-2.4 [facility] Serum or plasma alkaline nelson sphatase measurementOrdered By: Kofi Stapleton on 08-25-2024 ALP [Catalytic activity/Vol] 61 U/L 35-104 [facility] Serum or plasma calcium monico urement (mass/volume)Ordered By: Kofi Stapleton on 08-25-2024 Calcium [Mass/Vol] 9.4 mg/dL 7.6-11.0 [facility] Serum or plasma thyroperoxid ase antibody assay (units/volume)Ordered By: Kofi Stapleton on 08-25-2024 TPO Ab Qn [IU]/mL 0-34 [facility] Serum or plasma urea nitroge n measurement (mass/volume)Ordered By: Kofi Stapleton on 08-25-2024 Urea nitrogen [Mass/Vol] 13 mg/dL 4-19 [facility] Serum rheumatoid factor dete ctionOrdered By: Kofi Stapleton on 08-25-2024 Rheumatoid factor Ql (S) < 10.0 IU/mL <15 [facility] Sodium levelOrdered By: Kofi Stapleton on 08-25-2024 Sodium [Moles/Vol] 138 mmol/L 133-145 [facility] T4 Free Directon 08-25-2024 T4 FREE DIRECT 1.10 ng/dL Normal 0.76-1.46 [facility] Comment on above: Order Comment: Order Date: 08/25/24Order Info: [id number] - CMPOrder Info: [id number] - TSHOrder Info: [id number] - RAOrder Info: 3024-7 - Q7Yvipl comprehensive reflex if positive Performed By: #### L 3100.5475, L501.9520, L505.7010, L506.0400, L7000.5300, L100.0100, L500.4050 ####[facility] [address] [place], [place], [id number] T4 freeOrdered By: Kofi harkins on 08-25-2024 Free T4 [Mass/Vol] 1.10 ng/dL 0.76-1.46 [facility] TSH DL <= 0.005 mIU/L QnOrde red By: Kofi Stapleton on 08-25-2024 TSH Qn 3.780 uIU/mL 0.300-4.20 0 [facility] Thyroid Stim Hormone (TSH)on 08-25-2024 TSH 3.780 uIU/mL Normal 0.300-4.20 0 [facility] Comment on above: Order Comment: Order Date: 08/25/24Order Info: [id number] - CMPOrder Info: [id number] - TSHOrder Info: [id number] - RAOrder Info: 3024-7 - T4F Performed By: #### L 3100.5475, L501.9520, L505.7010, L506.0400, L7000.5300, L100.0100, L500.4050 ####[facility] [address] [place], [place], [id number] Total proteinOrdered By: Derek Stapleton on 08-25-2024 Protein [Mass/Vol] 7.0 g/dL 5.9-8.4 [facility] Vitamin D,25 Hydroxyon 08-25 Vitamin D 25-OH 18.6 ng/mL Low 30-100 [facility] Comment on above: Order Comment: Order Date: 08/25/24 Order Info: [id number] - CMP Order Info: [id number] - TSH Order Info: [id number] - RA Order Info: 3024-7 - T4F Result Comment: Thais min D Status Deficiency: <20 ng/mL (50nmol/L) Insufficiency: 20-30 ng/mL (50-75 nmol/L) Sufficiency: 30-100 ng/mL (75-250 nmol/L) Toxicity: >100 ng/mL (>250 nmol/L) Performed By: #### L 101.9900, L506.1001, L3300.6750 #### [facility] Laboratory [facility] [place], [place], [address] White blood cell (WBC) count Ordered By: Kofi Stapleton on 08-25-2024 WBC (Bld) [#/Vol] 10.1 10*3/uL 4.4-11.0 [facility] CNOVon 07-04-2024 CNOV Office Visit ([facility] ) TEMI SCHROEDER ([id number]) 4 F Date Time Provider Department 07/04/24 12:30 PM DEVORA BEGUM [facility] During your visit today, we recorded the following information about you: Temperature Pulse Respiration Blood pressure 98.3 degrees 104/minute 18/minute 122/80 Weight 137.1 kg Devora Begum PA-C 07/04/2024 12:43 PM Signed This note was created using NoteWriter. Subjective Temi Schroeder is a 23 year old female. Patient is a 23-year-old female who complains of worsening congestion and sinus pressure that she has been experiencing for the past 1 week. Patient also reports worsening loose cough with chest pressure. Patient denies ear pain or sore throat. Patient reports no fever, chills or myalgia. Patient has no history of asthma and does not smoke. Sinus Problem Associated symptoms include congestion and coughing. Review of Systems HENT: Positive for congestion and sinus pressure. Respiratory: Positive for cough. All other systems reviewed and are negative. Objective BP 122/80 Pulse 104 Temp 36.8 ?C (98.3 ?F) Resp 18 Wt (!) 137.1 kg (302 lb 4 oz) SpO2 98% Physical Exam Vitals and nursing note reviewed. Constitutional: Appearance: Normal appearance. She is normal weight. HENT: Head: Normocephalic and atraumatic. Right Ear: Tympanic membrane, ear canal and external ear normal. Left Ear: Tympanic membrane, ear canal and external ear normal. Nose: Nose normal. Mouth/Throat: Mouth: Mucous membranes are moist. Pharynx: Oropharynx is clear. Eyes: Extraocular Movements: Extraocular movements intact. Conjunctiva/sclera: Conjunctivae normal. Pupils: Pupils are equal, round, and reactive to light. Cardiovascular: Rate and Rhythm: Normal rate and regular rhythm. Pulses: Normal pulses. Heart sounds: Normal heart sounds. Pulmonary: Effort: Pulmonary effort is normal. Breath sounds: Wheezing and rhonchi present. Musculoskeletal: Cervical back: Normal range of motion and neck supple. Skin: General: Skin is warm and dry. Capillary Refill: Capillary refill takes less than 2 seconds. Neurological: General: No focal deficit present. Mental Status: She is alert and oriented to person, place, and time. Psychiatric: Mood and Affect: Mood normal. Behavior: Behavior normal. Thought Content: Thought content normal. Judgment: Judgment normal. Assessment and Plan Physical exam findings as noted above. Patient was provided with prescriptions for doxycycline 100 mg, prednisone 20 mg and Tessalon 100 mg. Supportive care instructions were discussed and the patient verbalizes excellent understanding of same. CLINICAL IMPRESSION: Bronchopneumonia ASSESSMENT/PLAN: 1. Bronchopneumonia - ICD9: 485, ICD10: J18.0 - DOXYCYCLINE HYCLATE 100 MG TABLET - PREDNISONE 20 MG TABLET - BENZONATATE 100 MG CAPSULE MDM Risk of Complications, Morbidity, and/or Mortality Presenting problems: low Diagnostic procedures: low Management options: low Devora Begum PA-C Referring Provider: SELF [200] Allergies As of Date: 07/04/2024 (No Known Allergies) Date Reviewed: 07/04/2024 Reviewed by: Carlyn Aguirre MA - Fully Assessed Reason for Visit: Sinus Problem [99] Cmt: sinus pressure and drainage x 5 days Primary Visit Diagnosis:Bronchopneumonia [J18.0] Order(s):doxycycline (VIBRA-TABS) 100 mg tabletTake 1 tablet by mouth two times a day for 10 days.Disp: 20 tabletRfl: 0 predniSONE (DELTASONE) 20 mg tabletTake 1 tablet by mouth two times a day for 5 days.Disp: 10 tabletRfl: 0 benzonatate (TESSALON PERLE) 100 mg capsuleTake 1 capsule by mouth three times a day as needed for cough for up to 7 days.Disp: 21 capsuleRfl: 0 Prescriptions as of 07/04/2024 - doxycycline (VIBRA-TABS) 100 mg tablet Take 1 tablet by mouth two times a day for 10 days. - predniSONE (DELTASONE) 20 mg tablet Take 1 tablet by mouth two times a day for 5 days. - benzonatate (TESSALON PERLE) 100 mg capsule Take 1 capsule by mouth three times a day as needed for cough for up to 7 days. - propranolol (INDERAL) 10 mg tablet Take 10 mg by mouth once daily. - escitalopram oxalate (LEXAPRO) 10 mg tablet - calcitriol(VECTICAL 3 MCG/GRAM OINTMENT) Apply to patches qam - tacrolimus(PROTOPIC 0.1 % OINTMENT) Apply to affected areas [facility] Problem List As Of Date: 07/04/2024 (None) Prescriptions ordered this encounter Disp Refills Start End DOXYCYCLINE HYCLATE 100 MG TABLET 20 t* 0 07/04/2024 07/14/2024 Route: ORAL Sig: Take 1 tablet by mouth two times a day for 10 days. PREDNISONE 20 MG TABLET 10 t* 0 07/04/2024 07/09/2024 Route: ORAL Sig: Take 1 tablet by mouth two times a day for 5 days. BENZONATATE 100 MG CAPSULE 21 c* 0 07/04/2024 07/11/2024 Route: ORAL Sig: Take 1 capsule by mouth three times a day as needed for cough for up to 7 days. Level of Servic (more content not included)... Normal [facility] CNOVon 06-06-2024 CNOV Office Visit ([facility] ) ALEXANDRE,TEMI ([id number]) 4 F Date Time Provider Department 06/06/24 2:00 PM TC [address]ELLA [facility] During your visit today, we recorded the following information about you: Temperature Pulse Respiration Blood pressure 100.1 degrees 96/minute 20/minute 134/93 Weight 136.3 kg Arabella Fields, LABORER DRIVER.BADGER DISTILLER OPERATOR 06/06/2024 2:29 PM Signed Subjective HPI Nontoxic-appearing 23-year-old female presents urgent care chief complaint flulike symptoms. Duration of symptoms 3 days. Associated symptoms malaise/fatigue sinus pressure sore throat cough headache fatigue. States has been slightly achy. Has noticed some blood in her nasal secretions. Unknown sick contacts. Denies high fevers chest pain shortness of productive cough chest pain pleuritic pain hemoptysis. Denies chance of . Past medical history prescription medications allergies reviewed. .Patient presents with: Sinus Problem: Yellow and bloody mucus with cough and nasal congestion x 3 days History reviewed. No pertinent past medical history. History reviewed. No pertinent surgical history. ALLERGIES Patient has no known allergies. MEDICATIONS propranolol (INDERAL) 10 mg tablet Take 10 mg by mouth once daily. escitalopram oxalate (LEXAPRO) 10 mg tablet (Patient taking differently: Take 15 mg by mouth once daily.) calcitriol(VECTICAL 3 MCG/GRAM OINTMENT) Apply to patches qam (Patient not taking: No sig reported) tacrolimus(PROTOPIC 0.1 % OINTMENT) Apply to affected areas qhs (Patient not taking: Reported on 07/13/2022) History reviewed. No pertinent family history. Review of Systems Constitutional: Positive for chills, fever and malaise/fatigue. HENT: Positive for congestion and sore throat. Negative for ear discharge, ear pain and sinus pain. Eyes: Negative for blurred vision, pain, discharge and redness. Respiratory: Positive for cough. Negative for hemoptysis, sputum production, shortness of breath, wheezing and stridor. Cardiovascular: Negative for chest pain. Gastrointestinal: Negative for abdominal pain, diarrhea, nausea and vomiting. Musculoskeletal: Positive for myalgias. Skin: Negative for itching and rash. Neurological: Positive for headaches. Negative for dizziness. Objective Physical Exam Constitutional: General: She is not in acute distress. Appearance: She is not diaphoretic. HENT: Head: Normocephalic. Jaw: No trismus, tenderness, swelling or pain on movement. Right Ear: Tympanic membrane, ear canal and external ear normal. Left Ear: Tympanic membrane, ear canal and external ear normal. Nose: Congestion present. Mouth/Throat: Mouth: Mucous membranes are moist. Pharynx: Oropharynx is clear. Uvula midline. No pharyngeal swelling, oropharyngeal exudate, posterior oropharyngeal erythema or uvula swelling. Eyes: Conjunctiva/sclera: Conjunctivae normal. Pupils: Pupils are equal, round, and reactive to light. Cardiovascular: Rate and Rhythm: Normal rate and regular rhythm. Heart sounds: Normal heart sounds. Pulmonary: Effort: Pulmonary effort is normal. No tachypnea, accessory muscle usage, respiratory distress or retractions. Breath sounds: Normal breath sounds. No stridor. No wheezing, rhonchi or rales. Abdominal: General: There is no distension. Palpations: Abdomen is soft. Tenderness: There is no abdominal tenderness. There is no guarding or rebound. Musculoskeletal: Cervical back: Normal range of motion and neck supple. No edema, erythema, rigidity or tenderness. No pain with movement. Normal range of motion. Lymphadenopathy: Cervical: No cervical adenopathy. Skin: General: Skin is warm and dry. Neurological: General: No focal deficit present. Mental Status: She is alert and oriented to person, place, and time. Mental status is at baseline. ASSESSMENT/PLAN: 1. Viral illness - ICD9: 079.99, ICD10: B34.9 - Discussed viral etiology and rationale for treatment. - Symptomatic treatment with prn analgesia - Supportive care with fluids and rest Nontoxic-appearing. No evidence of bacterial faction on today's assessment. Hemodynamically stable. Suspicious of viral etiology. Patient was educated on supportive therapies. Patient will follow up with primary care provider as needed. Patient was instructed to immediately proceed to emergency room for any new, worsening, or symptoms lasting longer than anticipated. The patient's clinical presentation is otherwise unremarkable at this time. Based on exam and clinical finding, the patient is stable for discharge. Plan of care was discussed with patient. Patient verbalizes understanding and agrees to plan of care. This note was generated using [employer] software. It may contain errors in wording, punctuation, or spelling. Arabella Fields APRN.BADGER DISTILLER OPERATOR Allergies As of Date: 06/06/2024 (No Known Allergies (more content not included)... Normal [facility] 25(OH)D3 SerPl-mCncon 2023 25-hydroxyvitamin D3 [Mass/Vol] 15.3 ng/mL Low 31.0-80.0 [facility] Comment on above: Order Comment: Speci men Type: BLOOD SPECIMEN Ordering Facility: [facility] Address: [address] [place] [address] Performed By: #### 1 989-3 #### [facility] CLIA [id number] [address] [place] [address] [place] CBC panel Auto (Bld)on 09-21 Erythrocyte distribution width (RBC) [Ratio] 12.9 % Normal 11.5-15.0 [facility] Comment on above: Order Comment: Specleonel kline Type: BLOOD SPECIMEN Ordering Facility: [facility] Address: [address] [place] [address] Performed By: #### 5 8410-2 #### [facility] CLIA [id number] [address] [place] [address] [place] Hematocrit (Bld) [Volume fraction] 42.3 % Normal 36.0-46.0 [facility] Comment on above: Order Comment: Speci men Type: BLOOD SPECIMEN Ordering Facility: [facility] Address: [address] [place] [address] Performed By: #### 5 8410-2 #### [facility] CLIA [id number] [address] [place], [place] [address] [place] Hemoglobin (Bld) [Mass/Vol] 13.5 g/dL Normal 11.5-15.5 [facility] Comment on above: Order Comment: Speci men Type: BLOOD SPECIMEN Ordering Facility: [facility] Address: [address] [place] [address] Performed By: #### 5 8410-2 #### [facility] CLIA [id number] [address] [place] [address] [place] MCH (RBC) [Entitic mass] 26.6 pg Normal 26.0-34.0 [facility] Comment on above: Order Comment: Speci men Type: BLOOD SPECIMEN Ordering Facility: [facility] Address: [address] [place] [address] Performed By: #### 5 8410-2 #### [facility] CLIA [id number] [address] [place] [address] [place] MCHC (RBC) [Mass/Vol] 31.9 g/dL Normal 30.5-36.0 [facility] Comment on above: Order Comment: Speci men Type: BLOOD SPECIMEN Ordering Facility: [facility] Address: [address] [place] [address] Performed By: #### 5 8410-2 #### [facility] CLIA [id number] [address] [place] [address] [place] MCV (RBC) [Entitic vol] 83.4 fL Normal 80.0-100.0 [facility] Comment on above: Order Comment: Speci men Type: BLOOD SPECIMEN Ordering Facility: [facility] Address: [address] [place] [address] Performed By: #### 5 8410-2 #### [facility] CLIA [id number] [address] [place] [address] [place] Nucleated RBC (Bld) [#/Vol] 10*3/uL Normal <0.01 [facility] Comment on above: Order Comment: Speci men Type: BLOOD SPECIMEN Ordering Facility: [facility] Address: [address] [place] [address] Performed By: #### 5 8410-2 #### [facility] CLIA [id number] [address] [place] [address] [place] Platelet mean volume (Bld) [Entitic vol] 10.3 fL Normal 9.0-12.7 [facility] Comment on above: Order Comment: Speci men Type: BLOOD SPECIMEN Ordering Facility: [facility] Address: [address] [place] [address] Performed By: #### 5 8410-2 #### [facility] CLIA [id number] [address] [place] [address] [place] Platelets (Bld) [#/Vol] 326 10*3/uL Normal 150-400 [facility] Comment on above: Order Comment: Speci men Type: BLOOD SPECIMEN Ordering Facility: [facility] Address: [address] [place] [address] Performed By: #### 5 8410-2 #### [facility] CLIA [id number] [address] [place] [address] [place] RBC (Bld) [#/Vol] 5.07 10*6/uL Normal 3.90-5.20 [facility] Comment on above: Order Comment: Speci men Type: BLOOD SPECIMEN Ordering Facility: [facility] Address: [address] [place] [address] Performed By: #### 5 8410-2 #### [facility] CLIA [id number] [address] [place] [address] [place] WBC (Bld) [#/Vol] 9.10 10*3/uL Normal 3.70-11.00 [facility] Comment on above: Order Comment: Speci men Type: BLOOD SPECIMEN [facility] Address: [address] [place] [address] Performed By: #### 5 8410-2 #### [facility] CLIA [id number] [address] [place], [place] [address] [place] Comprehensive metabolic 2000 panelon 09-22-2023 Albumin [Mass/Vol] 4.0 g/dL Normal 3.9-4.9 [facility] Comment on above: Order Comment: Speci men Type: BLOOD SPECIMEN Ordering Facility: [facility] Address: [address] [place], [place] [id number] Performed By: #### 2 4323-8, 94515-8, 6-3 #### [facility] CLIA [id number] [address] [place] [address] [place] ALP [Catalytic activity/Vol] 61 U/L Normal 34-123 [facility] Comment on above: Order Comment: Speci men Type: BLOOD SPECIMEN Ordering Facility: [facility] Address: [address] [place], [place] [phone] Performed By: #### 2 4323-8, 31458-6, 6-3 #### [facility] CLIA [id number] [address] [place] [address] [place] ALT [Catalytic activity/Vol] 29 U/L Normal 7-38 [facility] Comment on above: Order Comment: Speci men Type: BLOOD SPECIMEN Ordering Facility: [facility] Address: [address] [place] [address] Performed By: #### 2 4323-8, 50411-9, 6-3 #### [facility] CLIA [id number] [address] [place], [place] [address] [place] Anion gap [Moles/Vol] 10 mmol/L Normal 8-15 [facility] Comment on above: Order Comment: Speci men Type: BLOOD SPECIMEN Ordering Facility: [facility] Address: [address] [place], [place] [address] Performed By: #### 2 4323-8, 20078-5, 6-3 #### [facility] CLIA [id number] [address] [place] [address] [place] AST [Catalytic activity/Vol] 29 U/L Normal 13-35 [facility] Comment on above: Order Comment: Speci men Type: BLOOD SPECIMEN Ordering Facility: [facility] Address: [address] [place] [address] Performed By: #### 2 4323-8, 85751-4, 6-3 #### [facility] CLIA [id number] [address] [place] [address] [place] Bilirubin [Mass/Vol] 0.2 mg/dL Normal 0.2-1.3 [facility] Comment on above: Order Comment: Speci men Type: BLOOD SPECIMEN Ordering Facility: [facility] Address: [address] [place] [address] Performed By: #### 2 4323-8, 25912-4, 6-3 #### [facility] CLIA [id number] [address] [place] [address] [place] Calcium [Mass/Vol] 9.3 mg/dL Normal 8.5-10.2 [facility] Comment on above: Order Comment: Speci men Type: BLOOD SPECIMEN Ordering Facility: [facility] Address: [address] [place], [place] [phone] Performed By: #### 2 4323-8, 57978-4, 6-3 #### [facility] CLIA [id number] [address] [place] [address] [place] Chloride [Moles/Vol] 104 mmol/L Normal 98-107 [facility] Comment on above: Order Comment: Speci men Type: BLOOD SPECIMEN [facility]ing Facility: [facility] Address: [address] [place] [address] Performed By: #### 2 4323-8, , 3015-3 #### [facility] CLIA [id number] [address] [place] [address] [place] CO2 [Moles/Vol] 25 mmol/L Normal 22-30 [facility] Comment on above: Order Comment: Speci men Type: BLOOD SPECIMEN Ordering Facility: [facility] Address: [address] [place] [address] Performed By: #### 2 4323-8, , 3015-3 #### [facility] CLIA [id number] [address] [place] [address] [place] Creatinine [Mass/Vol] 0.62 mg/dL Normal 0.58-0.96 [facility] Comment on above: Order Comment: Speci men Type: BLOOD SPECIMEN Ordering Facility: [facility] Address: [address] [place] [address] Performed By: #### 2 4323-8, , 3 #### [facility] CLIA [id number] [address] [place] [address] [place] Creatinine and Glomerular filtration rate.predicted panel (S/P/Bld) 131 mL/min/1.73m??? Normal >=60 [facility] Comment on above: Order Comment: Speci men Type: BLOOD SPECIMEN Ordering Facility: [facility] Address: [address] [place] [address] Result Comment: Adamaris mated Glomerular Filtration Rate (eGFR) is calculated using the 2020 CKD-EPI creatinine equation. This equation utilizes serum creatinine, sex, and age as parameters. The creatinine assay has traceable calibration to isotope dilution-mass spectrometry. Refer to KDIGO guidelines for clinical interpretation. In patients with unstable renal function, e.g. those with acute kidney injury, the eGFR may not accurately reflect actual GFR. Performed By: #### 2 4323-8, 40989-5, 6-3 #### [facility] CLIA [id number] [address] [id number] [place] Glucose [Mass/Vol] 83 mg/dL Normal 74-99 [facility] Comment on above: Order Comment: Speci men Type: BLOOD SPECIMEN Ordering Facility: [facility] Address: [address] [place] [address] Result Comment: The [place] Diabetes Association (ADA) provides guidance for cutoff values for fasting glucose and random glucose. The ADA defines fasting as no caloric intake for at least 8 hours. Fasting plasma glucose results between 100 to 125 mg/dL indicate increased risk for diabetes (prediabetes). Fasting plasma glucose results greater than or equal to 126 mg/dL meet the criteria for diagnosis of diabetes. In the absence of unequivocal hyperglycemia, results should be confirmed by repeat testing. In a patient with classic symptoms of hyperglycemia or hyperglycemic crisis, random plasma glucose results greater than or equal to 200 mg/dL meet the criteria for diagnosis of diabetes. Reference: Standards of Medical Care in Diabetes 2016, [place] [employer] Association. Diabetes Care. 2016.39(Suppl 1). Performed By: #### 2 4323-8, 80140-7, 6-3 #### [facility] CLIA [id number] [address] [place] [address] [place] Potassium [Moles/Vol] 4.6 mmol/L Normal 3.7-5.1 [facility] Comment on above: Order Comment: Speci men Type: BLOOD SPECIMEN Ordering Facility: [facility] Address: [address] [place] [address] Performed By: #### 2 4323-8, 83108-9, 6-3 #### [facility] CLIA [id number] [address] [place], [place] [address] [place] Protein [Mass/Vol] 7.1 g/dL Normal 6.3-8.0 [facility] Comment on above: Order Comment: Speci men Type: BLOOD SPECIMEN Ordering Facility: [facility] Address: [address] [place] [address] Performed By: #### 2 4323-8, 20412-0, 3015-3 #### [facility] CLIA [id number] [address] [place] [address] [place] Sodium [Moles/Vol] 139 mmol/L Normal 136-144 [facility] Comment on above: Order Comment: Speci men Type: BLOOD SPECIMEN Ordering Facility: [facility] Address: [address] [place] [address] Performed By: #### 2 4323-8, 83860-1, 3015-3 #### [facility] CLIA [id number] [address] [place] [address] [place] Urea nitrogen [Mass/Vol] 11 mg/dL Normal 7-21 [facility] Comment on above: Order Comment: Speci men Type: BLOOD SPECIMEN Ordering Facility: [facility] Address: [address] [place] [address] Performed By: #### 2 4323-8, , 3 #### [facility] CLIA [id number] [address] [place] [address] [place] HbA1c (Bld)on 09-22-2023 Average glucose Estimated from glycated hemoglobin (Bld) [Mass/Vol] 103 mg/dL Normal [facility] Comment on above: Order Comment: Speci men Type: BLOOD SPECIMEN Ordering Facility: [facility] Address: [address] [place], [place] [phone] Result Comment: eAG: (Estimated average glucose) is a calculated value from HgbA1c and is advertising account representative of the average blood glucose level in the last 2-3 month period. Performed By: #### 5 5454-3 #### [facility] CLIA [id number] [address] [place], [place] [address] [place] HbA1c (Bld) [Mass fraction] 5.2 % Normal 4.3-5.6 [facility] Comment on above: Order Comment: Ayala kline Type: BLOOD SPECIMEN Ordering Facility: [facility] Address: [address] [place] [address] Result Comment: [place] Diabetes Association guidelines indicate that patients with HgbA1c in the range 5.7-6.4% are at increased risk for development of diabetes, and intervention by lifestyle modification may be beneficial. HgbA1c greater or equal to 6.5% is considered diagnostic of diabetes. Performed By: #### 5 5454-3 #### [facility] CLIA [id number] [address] [place] [address] [place] Magnesium SerPl-mCncon 09-21 Magnesium [Mass/Vol] 1.9 mg/dL Normal 1.7-2.3 [facility] Comment on above: Order Comment: Ayala kline Type: BLOOD SPECIMEN Ordering Facility: [facility] Address: [address] [place] [address] Performed By: #### 2 4323-8, 51084-2, 3016-3 #### [facility] CLIA [id number] [address] [place] [address] [place] TSH SerPl-aCncon 09-22-2023 TSH Qn 2.500 m[IU]/L Normal 0.510-4.30 0 [facility] Comment on above: Order Comment: Ayala kline Type: BLOOD SPECIMEN Ordering Facility: [facility] Address: [address] [place] [address] Result Comment: If t he patient is , TSH reference range varies by gestational period: First Trimester (weeks 9-12): 0.180-2.990 mIU/L Second Trimester: 0.110-3.980 mIU/L Third Trimester: 0.480-4.710 mIU/L Jeison Doherty et al. A Practical Approach for the Verifications and Determination of Site- and Trimester-Specific Reference Intervals for Thyroid Function tests in . Thyroid, 2019:29:3:412-420. Tacho Khan, et al. 2017 Guidelines of the [place] Thyroid Association for the Diagnosis and Management of Thyroid Disease during and the . Thyroid, 2017:27:3:315-389. Performed By: #### 2 4323-8, 34470-8, 3016-3 #### [facility] CLIA [id number] [address] [place] [address] [place] Absolute lymphocyte countOrd ered By: Kofi Stapleton on 09-30-2022 Lymphocytes Auto (Unsp spec) [#/Vol] 2.37 10*3/uL 0.83-4.51 [facility] Basophil percentageOrdered B y: Kofi Stapleton on 09-30-2022 Basophils/100 WBC (Bld) 0.5 % 0-1 [facility] Bilirubin [Mass/Vol] 0.30 mg/dL 0.20-1.00 [facility] Comment on above: For patients on eltr ombopag therapy, use of Dimension [place] TBIL is not recommended. Chloride [Moles/Vol] 105 mmol/L 98-107 [facility] Cholesterol [Mass/Vol] 201 mg/dL <200 [facility] Comment on above: <200 mg/dL Desirable 200-240 mg/dL Borderline >240 mg/dL High Risk Eosinophils/100 WBC (Bld) 2.1 % 0-5 [facility] Glucose [Mass/Vol] 113 mg/dL 74-106 [facility] Comment on above: Fasting Glucose resu lt from 100 to 125 mg/dL suggests IMPAIRED HOMEOSTASIS per A.D.A. criteria. Neutrophils (Bld) [#/Vol] 5.2 10*3/uL 2.0-7.7 [facility] Neutrophils/100 WBC (Bld) 61.7 % 47-70 [facility] Potassium [Moles/Vol] 3.7 mmol/L 3.5-5.1 [facility] Protein [Mass/Vol] 7.6 g/dL 6.4-8.2 [facility] Sodium [Moles/Vol] 139 mmol/L 136-145 [facility] Triglyceride [Mass/Vol] 252 mg/dL <199 [facility] Comment on above: The drugs N-Acetylcy steine and Metamizole may falsely depress this assay.Serum Triglycerides Reference Interval Normal <150 mg/dL Borderline high 150 - 199 mg/dL High 200 - 499 mg/dL Very High > or = 500 mg/dL WBC (Bld) [#/Vol] 8.4 10*3/uL 4.4-11.0 [facility] Blood erythrocytes count (nu mber/volume)Ordered By: Kofi Stapleton on 09-30-2022 RBC (Bld) [#/Vol] 5.03 10*6/uL 4.2-5.4 [facility] Blood hemoglobin measurement (mass/volume)Ordered By: Kofi Stapleton on 09-30-2022 Hemoglobin (Bld) [Mass/Vol] 13.5 g/dL 12.0-15.0 [facility] Blood lymphocytes/100 leukoc ytesOrdered By: Kofi Stapleton on 09-30-2022 Lymphocytes/100 WBC (Bld) 28.2 % 19-41 [facility] Blood monocytes/100 leukocyt esOrdered By: Kofi Stapleton on 09-30-2022 Monocytes/100 WBC (Bld) 6.8 % 0-10 [facility] Blood platelet mean volumeOr dered By: Kofi Stapleton on 09-30-2022 Platelet mean volume (Bld) [Entitic vol] 9.7 fL 6.2-12.0 [facility] Determination of erythrocyte mean corpuscular volume (MCV)Ordered By: Kofi Stapleton on 09-30-2022 MCV (RBC) [Entitic vol] 81.3 fL 81-99 [facility] Hematocrit Auto (Bld) [Volum e fraction]Ordered By: Kofi Stapleton on 09-30-2022 Hematocrit (Bld) [Volume fraction] 40.9 % 37-47 [facility] Laboratory - Chemistry and C hemistry - challengeOrdered By: Kofi Stapleton on 09-30-2022 ALP [Catalytic activity/Vol] 67 U/L 45-117 [facility] ALT [Catalytic activity/Vol] 35 U/L 13-56 [facility] CO2 [Moles/Vol] 27.0 mmol/L 21.0-32.0 [facility] Cobalamin (Vitamin B12) [Mass/Vol] 478 pg/mL 211-911 [facility] Free T4 [Mass/Vol] 1.04 ng/dL 0.76-1.46 [facility] Globulin (S) [Mass/Vol] 4.4 g/dL 2.2-4.2 [facility] Urea nitrogen/Creatinine [Mass ratio] 23.0 mg/mg 10-20 [facility] Laboratory - Hematology and Cell countsOrdered By: Kofi Stapleton on 09-30-2022 Erythrocyte distribution width (RBC) [Entitic vol] 36.9 fL 35.1-43.9 [facility] Erythrocyte distribution width (RBC) [Ratio] 12.6 % 11.6-14.6 [facility] Immature granulocytes/100 WBC (Bld) 0.700 % 0.0-0.9 [facility] Comment on above: IG% - Immature Granu locytes (promyelocytes, myelocytes and metamyelocytes) > 1% indicates that a LEFT SHIFT is Present. MCH (RBC) [Entitic mass] 26.8 pg 27.0-32.0 [facility] Nucleated RBC/100 WBC (Bld) [Ratio] 0 % 0-5 [facility] MCHC Auto (RBC) [Mass/Vol]Or dered By: Kofi Stapleton on 09-30-2022 MCHC (RBC) [Mass/Vol] 33.0 g/dL 32-36 [facility] No Panel InformationOrdered By: Kofi Stapleton on 09-30-2022 Estimated GFR (MDRD) Amer 129 mL/min >60 [facility] Comment on above: GFR Calc Estimated GFR (MDRD) Non-Af Amer 107 mL/min >60 [facility] Comment on above: Non- GFR Calc Thyroid Stimulating Hormone (TSH) 3.85 uIU/mL 0.358-3.74 [facility] Vitamin D 25-Hydroxy 14.3 ng/mL [facility] Comment on above: Vitamin D 25(OH) Sta tus Range Deficiency <20 ng/mL (50nmol/L) Insufficiency 20 - 30 ng/mL (50 - 75 nmol/L) Sufficiency 30 - 100 ng/mL (75 - 250 nmol/L) Toxicity >100 ng/mL (>250 nmol/L) Platelets bldOrdered By: Derek Stapleton on 09-30-2022 Platelets (Bld) [#/Vol] 338 10*3/uL 150-450 [facility] Serum or plasma albumin monico urement (mass/volume)Ordered By: Kofi Stapleton on 09-30-2022 Albumin [Mass/Vol] 3.2 g/dL 3.2-5.0 [facility] Serum or plasma albumin/glob ulin mass ratioOrdered By: Kofi Stapleton on 09-30-2022 Albumin/Globulin [Mass ratio] 0.7 {ratio} 0.9-2.4 [facility] Serum or plasma calcium monico urement (mass/volume)Ordered By: Kofi Stapleton on 09-30-2022 Calcium [Mass/Vol] 8.9 mg/dL 8.5-10.1 [facility] Serum or plasma cholesterol in HDL measurement (mass/volume)Ordered By: Kofi Stapleton on 09-30-2022 Cholesterol in HDL [Mass/Vol] 33 mg/dL >40 [facility] Comment on above: The drugs N-Acetylcy steine and Metamizole may falsely depress this assay. Reference Range HDL <40 mg/dL Low HDL Cholesterol HDL >or= 60 mg/dL High HDL Cholesterol Serum or plasma cholesterol in VLDL measurement (mass/volume)Ordered By: Kofi Stapleton on 09-30-2022 Cholesterol in VLDL [Mass/Vol] 50 mg/dL 5-40 [facility] Serum or plasma creatinine m easurement (mass/volume)Ordered By: Kofi Stapleton on 09-30-2022 Creatinine [Mass/Vol] 0.74 mg/dL 0.55-1.02 [facility] Comment on above: The validity of the calculated GFR & GFRAA in patients over 70 years has not been determined. Clinical correlation is essential. Serum or plasma low density lipoprotein (LDL) cholesterol measurement (mass/volume)Ordered By: Kofi Stapleton on 09-30-2022 Cholesterol in LDL [Mass/Vol] 118 mg/dL 0-130 [facility] Serum or plasma urea nitroge n measurement (mass/volume)Ordered By: Kofi Stapleton on 09-30-2022 Urea nitrogen [Mass/Vol] 17 mg/dL 7-18 [facility] Thin prep Papanicolaou smear with manual screeningOrdered By: Kofi Stapleton on 09-30-2022 Thin prep Papanicolaou smear with manual screening 25 U/L 15-37 [facility] Thin prep Papanicolaou smear with manual screening 7 5-15 [facility] .Auto Diffon 07-08-2021 Basophil, Absolute 0.10 10 3/mcL Normal 0.00-0.19 [facility] ([place]) Comment on above: Performed By: #### C BC, ADIFF, ANEU, BMP, GFR #### [address] [address] Basophils/100 WBC (Bld) 0.9 % Normal 0.0-2.5 [facility] ([place]) Comment on above: Performed By: #### C BC, ADIFF, ANEU, BMP, GFR #### [address] [address] Eosinophil, Absolute 0.20 10 3/mcL Normal 0.00-0.40 A [facility] ([place]) Comment on above: Performed By: #### C BC, ADIFF, ANEU, BMP, GFR #### [address] [address] Eosinophils/100 WBC (Bld) 1.3 % Normal 0.0-7.0 [facility] ([place]) Comment on above: Performed By: #### C BC, ADIFF, ANEU, BMP, GFR #### [address] [address] Lymphocyte, Absolute 2.70 10 3/mcL Normal 0.77-3.85 A [facility] ([place]) Comment on above: Performed By: #### C BC, ADIFF, ANEU, BMP, GFR #### [address] [address] Lymphocytes/100 WBC (Bld) 20.4 % Normal 10.0-50.0 [facility] ([place]) Comment on above: Performed By: #### C BC, ADIFF, ANEU, BMP, GFR #### [address] [address] Monocyte, Absolute 0.80 10 3/mcL Normal 0.15-1.00 [facility] ([place]) Comment on above: Performed By: #### C BC, ADIFF, ANEU, BMP, GFR #### [address] [address] Monocytes/100 WBC (Bld) 6.3 % Normal 1.7-13.0 [facility] ([place]) Comment on above: Performed By: #### C BC, ADIFF, ANEU, BMP, GFR #### [address] [address] Neutrophils/100 WBC (Bld) 71.1 % Normal 37.0-80.0 [facility] ([place]) Comment on above: Performed By: #### C BC, ADIFF, ANEU, BMP, GFR #### [address] [address] .GFRon 07-08-2021 GFR 209 ml/min/1.73sqm Normal [facility] ([place]) Comment on above: Result Comment: GFR Population mean for , Non- Americans Ages 20-29 = 116 mL/min/1.73 sq.m. Ages 30-39 = 107 mL/min/1.73 sq.m. Ages 40-49 = 99 mL/min/1.73 sq.m. Ages 50-59 = 93 mL/min/1.73 sq.m. Ages 60-69 = 85 mL/min/1.73 sq.m. Ages 70+ = 75 mL/min/1.73 sq.m. Chronic Kidney Disease: Less than 60 mL/min/1.73 square meters End Stage Renal Disease: Less than 15 mL/min/1.73 square meters Performed By: #### C BC, ADIFF, ANEU, BMP, GFR #### [address] [address] GFR Non- 173 ml/min/1.73sqm Normal [facility] ([place]) Comment on above: Result Comment: GFR Population mean for , Non- Americans Ages 20-29 = 116 mL/min/1.73 sq.m. Ages 30-39 = 107 mL/min/1.73 sq.m. Ages 40-49 = 99 mL/min/1.73 sq.m. Ages 50-59 = 93 mL/min/1.73 sq.m. Ages 60-69 = 85 mL/min/1.73 sq.m. Ages 70+ = 75 mL/min/1.73 sq.m. Chronic Kidney Disease: Less than 60 mL/min/1.73 square meters End Stage Renal Disease: Less than 15 mL/min/1.73 square meters Performed By: #### C BC, ADIFF, ANEU, BMP, GFR #### [address] [address] .NEUABSon 07-08-2021 Neutrophil, Absolute 9.50 10 3/mcL High 2.85-6.16 A [facility] ([place]) Comment on above: Performed By: #### C BC, ADIFF, ANEU, BMP, GFR #### [place] [id number] .Urinalysis Microscopic (AO) on 07-08-2021 UA RBC 10-15 Abnormal None Seen [facility] ([place]) Comment on above: Performed By: #### U A, PREGU, UAMICAO #### [address] [address] UA Squam Epithelial 0-5 Abnormal None Seen [facility] ([place]) Comment on above: Performed By: #### U A, PREGU, UAMICAO #### [address] [address] UA WBC None Seen Normal None Seen [facility] ([place]) Comment on above: Performed By: #### U A, PREGU, UAMICAO #### [address] [address] BMPon 07-08-2021 BUN/Creatinine Ratio 28 ratio High 7-27 [facility] ([place]) Comment on above: Performed By: #### C BC, ADIFF, ANEU, BMP, GFR #### [address] [address] Calcium [Mass/Vol] 9.2 mg/dL Normal 8.4-10.2 [facility] ([place]) Comment on above: Performed By: #### C BC, ADIFF, ANEU, BMP, GFR #### [address] [address] Chloride [Moles/Vol] 101 mmol/L Normal 98-107 [facility] ([place]) Comment on above: Performed By: #### C BC, ADIFF, ANEU, BMP, GFR #### [place] [id number] CO2 [Moles/Vol] 25 mmol/L Normal 22-29 [facility] ([place]) Comment on above: Performed By: #### C BC, ADIFF, ANEU, BMP, GFR #### [address] [address] Creatinine [Mass/Vol] 0.47 mg/dL Low 0.55-1.02 [facility] ([place]) Comment on above: Performed By: #### C BC, ADIFF, ANEU, BMP, GFR #### [address] [address] Electrolyte Balance 12.0 mEq/L Normal 4.0-15.0 [facility] ([place]) Comment on above: Performed By: #### C BC, ADIFF, ANEU, BMP, GFR #### [address] [address] Glucose [Mass/Vol] 105 mg/dL Normal 70-105 [facility] ([place]) Comment on above: Performed By: #### C BC, ADIFF, ANEU, BMP, GFR #### [address] [address] Potassium [Moles/Vol] 4.7 mmol/L Normal 3.5-5.1 [facility] ([place]) Comment on above: Performed By: #### C BC, ADIFF, ANEU, BMP, GFR #### [address] [address] Sodium [Moles/Vol] 138 mmol/L Normal 136-145 [facility] ([place]) Comment on above: Performed By: #### C BC, ADIFF, ANEU, BMP, GFR #### [place] [address] Urea nitrogen [Mass/Vol] 13 mg/dL Normal 7-18 [facility] ([place]) Comment on above: Performed By: #### C BC, ADIFF, ANEU, BMP, GFR #### [place] [address] CBCon 07-08-2021 Erythrocyte distribution width (RBC) [Ratio] 13.4 % Normal 11.5-14.5 [facility] ([place]) Comment on above: Performed By: #### C BC, ADIFF, ANEU, BMP, GFR #### [place] [address] Hematocrit (Bld) [Volume fraction] 40.6 % Normal 37.0-47.0 [facility] ([place]) Comment on above: Performed By: #### C BC, ADIFF, ANEU, BMP, GFR #### [place] [address] Hgb 13.6 G/dL Normal 12.0-16.0 [facility] ([place]) Comment on above: Performed By: #### C BC, ADIFF, ANEU, BMP, GFR #### [place] [id number] MCH (RBC) [Entitic mass] 27.1 pg Normal 27.0-31.2 [facility] ([place]) Comment on above: Performed By: #### C BC, ADIFF, ANEU, BMP, GFR #### [place] [address] MCHC 33.5 G/dL Normal 33.0-37.0 [facility] ([place]) Comment on above: Performed By: #### C BC, ADIFF, ANEU, BMP, GFR #### [place] [address] MCV (RBC) [Entitic vol] 80.8 fL Normal 80.0-94.0 [facility] ([place]) Comment on above: Performed By: #### C BC, ADIFF, ANEU, BMP, GFR #### [address] [address] Platelet 386 10 3/mcL Normal 130-400 [facility] ([place]) Comment on above: Performed By: #### C BC, ADIFF, ANEU, BMP, GFR #### [address] [address] Platelet mean volume (Bld) [Entitic vol] 8.1 fL Normal 7.4-10.4 [facility] ([place]) Comment on above: Performed By: #### C BC, ADIFF, ANEU, BMP, GFR #### [address] [address] RBC 5.03 10 6/mcL Normal 4.20-5.40 [facility] ([place]) Comment on above: Performed By: #### C BC, ADIFF, ANEU, BMP, GFR #### [address] [address] WBC 13.30 10 3/mcL High 4.60-10.80 [facility] ([place]) Comment on above: Performed By: #### C BC, ADIFF, ANEU, BMP, GFR #### [address] [address] [address] ABDOMEN/PELVIS W/O CONTRA STon 07-08-2021 CT ABDOMEN/PELVIS W/O CONTRAST ORIGINAL EXAMINATION: CT OF THE ABDOMEN AND PELVIS WITHOUT CONTRAST 07/08/2021 2:54 am TECHNIQUE: CT of the abdomen and pelvis was performed without the administration of intravenous contrast. Multiplanar reformatted images are provided for review. Automated exposure control, iterative reconstruction, and/or weight based adjustment of the mA/kV was utilized to reduce the radiation dose to as low as reasonably achievable. COMPARISON: None. HISTORY: ORDERING SYSTEM PROVIDED HISTORY: Reason for Exam: abdominal pain FINDINGS: Lung bases are clear. Upper abdominal solid organs demonstrate no acute findings. Kidneys are normal in appearance. Ureters are normal in course and caliber, no obstructing mass or lesion is identified. Small bowel and colon are normal in course and caliber. Appendix is normal in appearance. Urinary bladder is decompressed limiting its evaluation. Visualized osseous structures are within normal limits. No intra-abdominal free air or free fluid. Aorta is normal in caliber. IMPRESSION: No acute findings. Interpreted by: Rohan Herring MD Preliminary Report By: Rohan Herring MD Electronically signed By Rohan Herring MD Dictated Date: 07/08/2021 3:09:04 AM Prelim Date: 07/08/2021 3:11:13 AM Sign Date: 07/08/2021 3:11:13 AM Ordering Provider: ATIF COLLIER [facility] ([place]) LABORATORYOrdered By: So Agustin on 07-08-2021 Appearance (U) Clear (07/08/21 2:15 AM) Invalid Interpretation Code Clear AO Auto Urine SS Basophil, Absolute 0.10 103/mcL Invalid Interpretation Code 0.00 - 0.19 10^3/mcL AO Auto Heme SS Basophils/100 WBC (Bld) 0.9 % Invalid Interpretation Code 0.0 - 2.5 % AO Auto Heme SS Bilirubin Ql (U) Negative (07/08/21 2:15 AM) Invalid Interpretation Code Negative AO Auto Urine SS Calcium [Mass/Vol] 9.2 mg/dL Invalid Interpretation Code 8.4 - 10.2 mg/dL AO ADM SS Chloride [Moles/Vol] 101 mmol/L Invalid Interpretation Code 98 - 107 mmol/L AO ADM SS CO2 [Moles/Vol] 25 mmol/L Invalid Interpretation Code 22 - 29 mmol/L AO ADM SS Color (U) Yellow (07/08/21 2:15 AM) Invalid Interpretation Code AO Auto Urine SS Creatinine [Mass/Vol] 0.47 mg/dL Invalid Interpretation Code 0.55 - 1.02 mg/dL AO ADM SS Electrolyte Balance 12.0 mEq/L Invalid Interpretation Code 4.0 - 15.0 mEq/L AO ADM SS Eosinophil, Absolute 0.20 103/mcL Invalid Interpretation Code 0.00 - 0.40 10^3/mcL AO Auto Heme SS Eosinophils/100 WBC (Bld) 1.3 % Invalid Interpretation Code 0.0 - 7.0 % AO Auto Heme SS Erythrocyte distribution width (RBC) [Ratio] 13.4 % Invalid Interpretation Code 11.5 - 14.5 % AO Auto Heme SS Glucose [Mass/Vol] 105 mg/dL Invalid Interpretation Code 70 - 105 mg/dL AO ADM SS Glucose Test strip (U) [Mass/Vol] Negative Invalid Interpretation Code Negativemg /dL AO Auto Urine SS HCG ( test) Ql Negative (07/08/21 2:15 AM) Invalid Interpretation Code AO Manual Urine SS Hematocrit (Bld) [Volume fraction] 40.6 % Invalid Interpretation Code 37.0 - 47.0 % AO Auto Heme SS Hemoglobin (Bld) [Mass/Vol] 13.6 G/dL Invalid Interpretation Code 12.0 - 16.0 G/dL AO Auto Heme SS Hemoglobin Auto test strip (U) [Mass/Vol] Moderate *ABN* (07/08/21 2:15 AM) Invalid Interpretation Code Negative AO Auto Urine SS Ketones Ql (U) Negative Invalid Interpretation Code Negativemg /dL AO Auto Urine SS Lymphocyte, Absolute 2.70 103/mcL Invalid Interpretation Code 0.77 - 3.85 10^3/mcL AO Auto Heme SS Lymphocytes/100 WBC (Bld) 20.4 % Invalid Interpretation Code 10.0 - 50.0 % AO Auto Heme SS MCH (RBC) [Entitic mass] 27.1 pg Invalid Interpretation Code 27.0 - 31.2 pg AO Auto Heme SS MCHC (RBC) [Mass/Vol] 33.5 G/dL Invalid Interpretation Code 33.0 - 37.0 G/dL AO Auto Heme SS MCV (RBC) [Entitic vol] 80.8 fL Invalid Interpretation Code 80.0 - 94.0 fL AO Auto Heme SS Monocyte, Absolute 0.80 103/mcL Invalid Interpretation Code 0.15 - 1.00 10^3/mcL AO Auto Heme SS Monocytes/100 WBC (Bld) 6.3 % Invalid Interpretation Code 1.7 - 13.0 % AO Auto Heme SS Neutrophil, Absolute 9.50 103/mcL Invalid Interpretation Code 2.85 - 6.16 10^3/mcL AO Auto Heme SS Neutrophils/100 WBC (Bld) 71.1 % Invalid Interpretation Code 37.0 - 80.0 % AO Auto Heme SS Platelet mean volume (Bld) [Entitic vol] 8.1 fL Invalid Interpretation Code 7.4 - 10.4 fL AO Auto Heme SS Platelets (Bld) [#/Vol] 386 103/mcL Invalid Interpretation Code 130 - 400 10^3/mcL AO Auto Heme SS Potassium [Moles/Vol] 4.7 mmol/L Invalid Interpretation Code 3.5 - 5.1 mmol/L AO ADM SS test (u) int Not detected Invalid Interpretation Code AO Manual Urine SS RBC (Bld) [#/Vol] 5.03 106/mcL Invalid Interpretation Code 4.20 - 5.40 10^6/mcL AO Auto Heme SS Sodium [Moles/Vol] 138 mmol/L Invalid Interpretation Code 136 - 145 mmol/L AO ADM SS UA Leuk Est Negative (07/08/21 2:15 AM) Invalid Interpretation Code Negative AO Auto Urine SS UA Nitrite Negative (07/08/21 2:15 AM) Invalid Interpretation Code Negative AO Auto Urine SS UA pH 6.5 (07/08/21 2:15 AM) Invalid Interpretation Code 5.0 - 8.0 AO Auto Urine SS UA Protein Negative Invalid Interpretation Code Negativemg /dL AO Auto Urine SS UA RBC 10-15 /HPF Invalid Interpretation Code None Seen/HPF AO Auto Urine SS UA Spec Grav >=1.030 *ABN* (07/08/21 2:15 AM) Invalid Interpretation Code 1.015-1.02 5 AO Auto Urine SS UA Specimen Type Clean Catch (07/08/21 2:15 AM) Invalid Interpretation Code AO Auto Urine SS UA Squam Epithelial 0-5 /HPF Invalid Interpretation Code None Seen/HPF AO Auto Urine SS UA Urobilinogen 0.2 E.U./dL Invalid Interpretation Code 0.2-1.0E.U ./dL AO Auto Urine SS Urea nitrogen [Mass/Vol] 13 mg/dL Invalid Interpretation Code 7 - 18 mg/dL AO ADM SS Urea nitrogen/Creatinine [Mass ratio] 28 ratio Invalid Interpretation Code 7 - 27 ratio AO ADM SS WBC (Bld) [#/Vol] 13.30 103/mcL Invalid Interpretation Code 4.60 - 10.80 10^3/mcL AO Auto Heme SS WBC LM.HPF (Urine sed) [#/Area] None Seen /HPF Invalid Interpretation Code None Seen/HPF AO Auto Urine SS LABORATORYOrdered By: SYSTEM SYSTEM on 07-08-2021 GFR 209 ml/min/1.73sqm Invalid Interpretation Code AO Chemistry S GFR Non- 173 ml/min/1.73sqm Invalid Interpretation Code AO Chemistry S PREGUon 07-08-2021 HCG ( test) Ql (U) Negative Normal [facility] ([place]) Comment on above: Performed By: #### U A, PREGU, UAMICAO #### [address] [address] test (u) int Not detected Invalid Interpretation Code [facility] ([place]) Comment on above: Performed By: #### U A, PREGU, UAMICAO #### [address] [address] UAon 07-08-2021 Color (U) Yellow Normal [facility] ([place]) Comment on above: Performed By: #### U A, PREGU, UAMICAO #### [address] [address] Glucose (U) [Mass/Vol] Negative Normal Negative [facility] ([place]) Comment on above: Performed By: #### U A, PREGU, UAMICAO #### [address] [address] Ketones Ql (U) Negative Normal Negative [facility] ([place]) Comment on above: Performed By: #### U A, PREGU, UAMICAO #### [address] [address] UA Appear Clear Normal Clear [facility] ([place]) Comment on above: Performed By: #### U A, PREGU, UAMICAO #### [address] [address] UA Blood Moderate Abnormal Negative [facility] ([place]) Comment on above: Performed By: #### U A, PREGU, UAMICAO #### [address] [address] UA Leuk Est Negative Normal Negative [facility] ([place]) Comment on above: Performed By: #### U A, PREGU, UAMICAO #### [address] [address] UA Nitrite Negative Normal Negative [facility] ([place]) Comment on above: Performed By: #### U A, PREGU, UAMICAO #### [address] [address] UA pH 6.5 Normal 5.0 - 8.0 [facility] ([place]) Comment on above: Performed By: #### U A, PREGU, UAMICAO #### [address] [address] UA Protein Negative Normal Negative [facility]) Comment on above: Performed By: #### U A, PREGU, UAMICAO #### [address] [address] UA Spec Grav >=1.030 Abnormal 1.015-1.02 5 [facility] ([place]) Comment on above: Performed By: #### U A, PREGU, UAMICAO #### [address] [address] UA Specimen Type Clean Catch Normal [facility]) Comment on above: Performed By: #### U A, PREGU, UAMICAO #### [address] [address] UA Urobilinogen 0.2 E.U./dL Normal 0.2-1.0 [facility] ([place]) Comment on above: Performed By: #### U A, PREGU, UAMICAO #### [address] [address] Urobilinogen (U) [Mass/Vol] Negative Normal Negative [facility]) Comment on above: Performed By: #### U A, PREGU, UAMICAO #### [address] [address] Culture, urineon 07-03-2021 Bacteria identified Cx Nom (U) Positive [facility] Work Phone: Absolute lymphocyte counton 04-22-2021 Lymphocytes Auto (Unsp spec) [#/Vol] 2.40 10*3/uL 0.83-4.51 [facility] Work Phone: Basophil percentageon 2021 Basophils/100 WBC (Bld) 0.4 % 0-1 [facility] Work Phone: Chloride [Moles/Vol] 104 mmol/L 98-107 [facility] Work Phone: Eosinophils/100 WBC (Bld) 0.8 % 0-3 [facility] Work Phone: Glucose [Mass/Vol] 117 mg/dL 74-106 [facility] Work Phone: Comment on above: Fasting Glucose resu lt from 100 to 125 mg/dL suggests IMPAIRED HOMEOSTASIS per A.D.A. criteria. Neutrophils (Bld) [#/Vol] 9.6 10*3/uL 2.0-7.7 [facility] Work Phone: Neutrophils/100 WBC (Bld) 73.7 % 34-64 [facility] Work Phone: Potassium [Moles/Vol] 3.5 mmol/L 3.5-5.1 [facility] Work Phone: Sodium [Moles/Vol] 137 mmol/L 136-145 [facility] Work Phone: WBC (Bld) [#/Vol] 13.0 10*3/uL 4.5-13.0 [facility] Work Phone: Basophil percentage 0-5 SEEN /hpf [facility] Work Phone: Bilirubin Test strip Ql (U)o n 04-22-2021 Bilirubin Ql (U) Negative Negative [facility] Work Phone: Blood erythrocytes count (nu mber/volume)on 04-22-2021 RBC (Bld) [#/Vol] 4.68 10*6/uL 4.1-4.8 [facility] Work Phone: Blood hemoglobin measurement (mass/volume)on 04-22-2021 Hemoglobin (Bld) [Mass/Vol] 13.1 g/dL 12.0-15.0 [facility] Work Phone: Blood lymphocytes/100 leukoc yteson 04-22-2021 Lymphocytes/100 WBC (Bld) 18.5 % 25-45 [facility] Work Phone: Blood monocytes/100 leukocyt eson 04-22-2021 Monocytes/100 WBC (Bld) 6.2 % 3-6 [facility] Work Phone: Blood platelet mean volumeon 04-22-2021 Platelet mean volume (Bld) [Entitic vol] 9.7 fL 6.2-12.0 [facility] Work Phone: Culture, urineon 04-22-2021 Bacteria identified Cx Nom (U) Positive [facility] Work Phone: Determination of erythrocyte mean corpuscular volume (MCV)on 04-22-2021 MCV (RBC) [Entitic vol] 80.8 fL 78-96 [facility] Work Phone: Hematocrit Auto (Bld) [Volum e fraction]on 04-22-2021 Hematocrit (Bld) [Volume fraction] 37.8 % 37-46 [facility] Work Phone: Ketones Test strip Ql (U)on 04-22-2021 Ketones Ql (U) Negative Negative [facility] Work Phone: Laboratory - Chemistry and C hemistry - challengeon 04-22-2021 CO2 [Moles/Vol] 28.0 mmol/L 21.0-32.0 [facility] Work Phone: Urea nitrogen/Creatinine [Mass ratio] 22.9 mg/mg 10-20 [facility] Work Phone: HCG ( test) Ql (U) Negative [facility] Work Phone: Comment on above: Very dilute urine sp ecimens, as indicated by a low specificgravity, may not contain advertising account representative levels of hCG. If is still suspected, a first morning urinespecimen should be collected 48 hours later and tested. Laboratory - Hematology and Cell countson 04-22-2021 Erythrocyte distribution width (RBC) [Entitic vol] 36.9 fL 35.1-43.9 [facility] Work Phone: Erythrocyte distribution width (RBC) [Ratio] 12.8 % 11.6-14.6 [facility] Work Phone: Immature granulocytes/100 WBC (Bld) 0.400 % 0.0-0.9 [facility] Work Phone: Comment on above: IG% - Immature Granu locytes (promyelocytes, myelocytes and metamyelocytes) > 1% indicates that a LEFT SHIFT is Present. MCH (RBC) [Entitic mass] 28.0 pg 25.0-35.0 [facility] Work Phone: Nucleated RBC/100 WBC (Bld) [Ratio] 0 % 0-5 [facility] Work Phone: MCHC Auto (RBC) [Mass/Vol]on 04-22-2021 MCHC (RBC) [Mass/Vol] 34.7 g/dL 32-36 [facility] Work Phone: Mucus LM Ql (Urine sed)on Mucus Ql (Urine sed) 0 SEEN /hpf [facility] Work Phone: Nitrite Test strip Ql (U)on 04-22-2021 Nitrite Ql (U) Negative Negative [facility] Work Phone: No Panel Informationon 04-22 Estimated Creatinine Clearance Calc 124.39 ml/min [facility] Work Phone: Estimated GFR (MDRD) Amer 151 mL/min >60 [facility] Work Phone: Comment on above: GFR Calc Estimated GFR (MDRD) Non-Af Amer 125 mL/min >60 [facility] Work Phone: Comment on above: Non- GFR Calc Platelets bldon 04-22-2021 Platelets (Bld) [#/Vol] 340 10*3/uL 150-450 [facility] Work Phone: Protein Test strip Ql (U)on 04-22-2021 Protein Ql (U) 30 mg/dl Negative [facility] Work Phone: Serum or plasma calcium monico urement (mass/volume)on 04-22-2021 Calcium [Mass/Vol] 8.7 mg/dL 8.5-10.1 [facility] Work Phone: Serum or plasma creatinine m easurement (mass/volume)on 04-22-2021 Creatinine [Mass/Vol] 0.66 mg/dL 0.55-1.02 [facility] Work Phone: Comment on above: The validity of the calculated GFR & GFRAA in patients over 70 years has not been determined. Clinical correlation is essential. Serum or plasma urea nitroge n measurement (mass/volume)on 04-22-2021 Urea nitrogen [Mass/Vol] 15 mg/dL 7-18 [facility] Work Phone: Squamous epithelial cells de tection in urine sediment by light microscopyon 04-22-2021 Epithelial cells.squamous LM Ql (Urine sed) 5-10 SEEN /hpf [facility] Work Phone: Thin prep Papanicolaou smear with manual screeningon 04-22-2021 Thin prep Papanicolaou smear with manual screening 5 5-15 [facility] Work Phone: Urine blood detectionon 03-28 RBC Ql (U) 10 /ul Negative [facility] Work Phone: RBC Ql (U) 0 SEEN /hpf [facility] Work Phone: Urine clarityon 04-22-2021 Clarity (U) Clear Clear [facility] Work Phone: Urine color determinationon 04-22-2021 Color (U) Yellow Yellow [facility] Work Phone: Urine glucose detectionon Glucose Ql (U) Normal mg/dl Normal [facility] Work Phone: Urine leukocyte esterase det ection by dipstickon 04-22-2021 Leukocyte esterase Test strip Ql (U) Negative Negative [facility] Work Phone: Urine pHon 04-22-2021 pH (U) 6.5 [pH] [facility] Work Phone: Urine sediment bacteria coun t by microscopy (number/high power field)on 04-22-2021 Bacteria LM.HPF (Urine sed) [#/Area] 2 /[HPF] None Seen [facility] Work Phone: Urine specific gravity measu rementon 04-22-2021 Specific gravity (U) [Rel density] 1.015 [facility] Work Phone: Urobilinogen Auto test strip Ql (U)on 04-22-2021 Urobilinogen Ql (U) 1 mg/dl Normal [facility] Work Phone: Progress Noteon 06-08-2020 Hand Or Machine Paster Authentication Interface Message Text I Jamir Ye MD was notified and agreed verbally with the admission of Temi Schroeder on 06/08/2020. Jamir Ye MD June 09, 2020 9:13 AM Normal [facility] Vital Signs Date Time Vital Sign Value Performing Clinician Facility 07-04-2024 12:30-0400 Body temperature 98.29 [degF] Devora Clutter PA-C Work Phone: [facility] 07-04-2024 12:30-0400 Body weight 137.1 kg Devora Clutter PA-C Work Phone: [facility] 07-04-2024 12:30-0400 Diastolic blood pressure 80 mm[Hg] Devora Clutter PA-C Work Phone: [facility] 07-04-2024 12:30-0400 Heart rate 104 /min Devora Clutter PA-C Work Phone: [facility] 07-04-2024 12:30-0400 Respiratory rate 18 /min Devora Clutter PA-C Work Phone: [facility] 07-04-2024 12:30-0400 SaO2% (BldA) [Mass fraction] 98 % Devora Clutter PA-C Work Phone: [facility] 07-04-2024 12:30-0400 Systolic blood pressure 122 mm[Hg] Devora Clutter PA-C Work Phone: [facility] 06-06-2024 14:06-0400 Body temperature 100.09 [degF] Arabella Fields APRN.CNP Work Phone: [facility] 06-06-2024 14:06-0400 Body weight 136.3 kg [facility].BADGER DISTILLER OPERATOR Work Phone: [facility] 06-06-2024 14:06-0400 Diastolic blood pressure 93 mm[Hg] [facility] LABORER DRIVER.BADGER DISTILLER OPERATOR Work Phone: [facility] 06-06-2024 14:06-0400 Heart rate 96 /min [facility] LABORER DRIVER.BADGER DISTILLER OPERATOR Work Phone: [facility] 06-06-2024 14:06-0400 Respiratory rate 20 /min [facility] LABORER DRIVER.BADGER DISTILLER OPERATOR Work Phone: [facility] 06-06-2024 14:06-0400 SaO2% (BldA) [Mass fraction] 99 % [facility] LABORER DRIVER.BADGER DISTILLER OPERATOR Work Phone: [facility] 06-06-2024 14:06-0400 Systolic blood pressure 134 mm[Hg] [facility] LABORER DRIVER.BADGER DISTILLER OPERATOR Work Phone: [facility] 04-10-2022 17:35-0500 Body height 165.1 cm [facility] 04-10-2022 17:35-0500 Body mass index (BMI) [Percentile] Per age and sex 99 % [facility] 04-10-2022 17:35-0500 Body mass index (BMI) [Ratio] 44.9 kg/m2 [facility] 04-10-2022 17:35-0500 Body temperature 97.3 [degF] [facility] 04-10-2022 17:35-0500 Body weight 122.46 kg [facility] 04-10-2022 17:35-0500 Diastolic blood pressure 93 mm[Hg] [facility] 04-10-2022 17:35-0500 Heart rate 104 /min [facility] 04-10-2022 17:35-0500 Respiratory rate 18 /min [facility] 04-10-2022 17:35-0500 SaO2% (BldA) [Mass fraction] 98 % [facility] 04-10-2022 17:35-0500 Systolic blood pressure 151 mm[Hg] [facility] 07-08-2021 14:00-0400 Body temperature 98.6 [degF] ATIF JOINERKA DO [facility] 07-08-2021 14:00-0400 Diastolic blood pressure 91 mm[Hg] ATIF JOINERKA DO [facility] 07-08-2021 14:00-0400 Heart rate 101 /min ATIF COLLIER DO [facility] 07-08-2021 14:00-0400 Mean blood pressure 110 mm[Hg] ATIF COLLIER DO [facility] 07-08-2021 14:00-0400 Respiratory rate 16 /min ATIF COLLIER DO [facility] 07-08-2021 14:00-0400 Systolic blood pressure 149 mm[Hg] ATIF COLLIER DO [facility] 04-22-2021 04:30-0500 Heart rate 78 /min [facility] Work Phone: 04-22-2021 04:30-0500 Respiratory rate 16 /min [facility] Work Phone: 04-22-2021 04:30-0500 SaO2% (BldA) [Mass fraction] 98 % [facility] Work Phone: 04-22-2021 01:19-0500 Body height 165.1 cm [facility] Work Phone: 04-22-2021 01:050 Body mass index (BMI) [Ratio] 49.1 kg/m2 [facility] Work Phone: 04-22-2021 01:050 Body temperature 97.4 [degF] [facility] Work Phone: 04-22-2021 01:050 Body weight 133.8 kg [facility] Work Phone: 04-22-2021 01:050 Diastolic blood pressure 99 mm[Hg] [facility] Work Phone: 04-22-2021 01:050 Systolic blood pressure 159 mm[Hg] [facility] Work Phone: Encounters Encounter Date Encounter Type Care Provider Facility Start: 12-28-2024 ambulatory Kofi Stapleton [facility] y:[facility] Start: 12-24-2024 End: 12-24-2024 ambulatory Kofi Stapleton Facility:[facility] Start: 08-25-2024 End: 08-25-[address] Kofi Stapleton MD Work Phone: [facility] Start: 08-25-2024 End: 08-25-[address] Kofi Stapleton MD [facility] Work Phone: Start: 08-25-2024 End: 08-25-2024 ambulatory Kofi Stapleton Facility:[facility] Start: 07-04-2024 End: 07-04-2024 Office outpatient visit 25 minutes Devora Begum PA-C Work Phone: [facility] Comment on above: Bronchopneumonia (Pr imary Dx) Start: 07-04-2024 End: 07-04-2024 ambulatory SELF Facility:[facility] Start: 06-06-2024 End: 06-06-2024 ambulatory Facility:[facility] Start: 06-06-2024 End: 06-06-2024 Office outpatient visit 25 minutes Arabella Fields APRN.CNP Work Phone: [facility] Comment on above: Viral illness (Prima ry Dx) Start: 09-22-2023 End: 09-22-2023 ambulatory Facility:[facility] Start: 09-30-2022 End: 09-30-2022 ambulatory [facility] Work Phone: Start: 09-30-2022 End: 09-30-2022 Patient encounter procedure [facility], [facility] Start: 04-10-2022 End: 04-10-2022 Emergency department patient visit [facility] Start: 07-08-2021 End: 07-08-2021 Emergency department patient visit ATIF COLLIER DO [facility] Start: 07-03-2021 End: 07-03-2021 Patient encounter procedure [facility], [place] [employer] Start: 04-22-2021 End: 04-22-2021 Emergency department patient visit [facility] Procedures Date Procedure Procedure Detail Performing Clinician Start: 08-25-[address] Derek Stapleton MD Work Phone: Comment on above: Performed at: [address] Director: Devin Carranza PhD, Phone: [phone] Start: 08-25-2024 Measurement of Borre zachary burgdorferi antibody Dr. Kofi Stapleton MD Work Phone: Comment on above: Lyme antibodies not detected. Reflex testing is notindicated.No laboratory evidence of infection with B. burgdorferi(Lyme disease). Negative results may occur in patientsrecently infected (less than or equal to 14 days) with B.burgdorferi. If recent infection is suspected, repeattesting on a new sample collected in 7 to 14 days isrecommended. Start: 08-25-20[address] Thyro[address] antibo dy measurement [address]. Kofi Stapleton MD Work Phone: Comment on above: Thyroglobulin Antibo dy measured by [employer].toMethodologyIt should be noted that the presence of thyroglobulinantibodies may not be pathogenic nor diagnostic, especiallyat very low levels. The assay electrotherapist has found thatfour percent of individuals without evidence of thyroiddisease or autoimmunity will have positive TgAb levels upto 4 IU/mL.Performed at: [address] [id number] Director: Devin Carranza PhD, Phone: [phone] Start: 08-25-2024 Vitamin D, 25-hydrox y measurement Dr. Kofi Stapleton MD Work Phone: Comment on above: Vitamin D StatusDefi ciency: <20 ng/mL (50nmol/L)Insufficiency: 20-30 ng/mL (50-75 nmol/L)Sufficiency: 30-100 ng/mL (75-250 nmol/L)Toxicity: >100 ng/mL (>250 nmol/L) Start: 08-25-2024 Plain x-ray of hand Dr. Kofi Stapleton MD Work Phone: Start: 08-25-2024 Plain x-ray of pelvi s and lower extremity Dr. Kofi Stapleton MD Work Phone: Start: 08-25-2024 XR knee, [address] Shasha Stapleton MD Work Phone: Start: 04-10-2022 CT cervical spine wi thout contrast Start: 04-10-2022 CT of head without contrast Start: 07-03-2021 Urine culture Start: 04-22-2021 Urine culture Start: 04-22-2021 CT of abdomen and pe lvis without contrast Plan of Treatment Date Care Activity Detail Author Start: 11-02-2024 Urine microalbumin profile DTaP,Tdap,Td Vaccine (7 - Td or Tdap) [facility] Start: 10-25-2024 Influenza vaccination Influenza Vaccine (Season Ended) [facility] Start: 11-11-2023 Screening for malignant neoplasm of cervix Cervical Cancer Screening [facility] Start: 10-26-2023 Covid-19 Vaccine ( season) Covid-19 Vaccine ( season) [facility] Start: 10-26-2023 Influenza vaccination Influenza Vaccine (#1) [facility] Start: 07-14-2023 GC (Gonorrhea) Screening (18-24) GC (Gonorrhea) Screening (18-24) [facility] Start: 07-14-2023 Screening for Chlamydia trachomatis Chlamydia Screening (18-24) [facility] Start: 2020 Anxiety Screening Anxiety Screening [facility] Start: 2020 Depression Screening Depression Screening [facility] Start: 2018 Meningococcal B Vaccine (1 of 2 - Standard) Meningococcal B Vaccine (1 of 2 - Standard) [facility] Start: 2017 HPV Vaccine (1 - 3-dose series) HPV Vaccine (1 - 3-dose series) [facility] Start: 2016 Peds To Adult Transition Annual Assessment Peds To Adult Transition Annual Assessment [facility] Start: 2014 Peds To Adult Transition Initial Discussion Peds To Adult Transition Initial Discussion [facility] Patient Education [facility] Work Phone: Patient referral [facility] Work Phone: Payers Date Payer Category Payer Self-pay [id number] 2024 Private Health Insurance [facility] [id number] 2024 Unknown [id number] 2022 Unknown [id number] 2015 Unknown [id number] 2015 Unknown [id number] Unknown [id number] Unknown [id number] Social History Date Type Detail Facility [facility] Work Phone: Start: 04-22-2021 End: 04-10-2022 Tobacco smoking status NHIS Unknown if ever smoked [facility] Start: 2000 Sex Assigned At Female [facility] Start: 2000 Sex assigned at Not on file [facility] Gender identity Not on file [facility] Start: 04-10-2022 Tobacco smoking status NHIS Never smoked tobacco (finding) [facility] NEGATED: Highlighted row [facility] Functional Status Date Assessment Result Facility 07-08-2021 Functional Status [facility] spital [facility] Mental Status Date Assessment Result Facility 07-08-2021 Mental Status [facility] Clinical Notes 06-20-2020 to 08-25-2024 Devora Begum PA-C - 07/04/2024 12:38 PM EDTPArabella ugalde APRN.BADGER DISTILLER OPERATOR - 06/06/2024 2:07 PM EDT Note Date & Type Note Facility 08-25-2024 Radiology Diagnostic study note [facility] Imaging Services [address] [place] [address] Hand Min 3 Views MR#: [id number] Acct: [id number] Name: TEMI SCHROEDER Rep #: [id number] : 2000 F 23 From: Girish Aquino MD PCP: Dr. Kofi Stapleton MD Status: RE G CLI Study:Hand Min 3 Views Date of Exam: 04/20 Exam# [id number] Ordering Dr: Kofi Stapleton MD PROCEDURE: HAND MIN 3 VIEWS 08/25/2024 REASON FOR EXAM: PAIN TECHNIQUE: HAND MIN 3 VIEWS COMPARISON: None. RAD/Hand Min 3 Views IMPRESSION: No significant arthritic process or joint narrowing is noted on either side. Satisfactory osseous alignment is seen throughout, bilaterally. No fracture, dislocation, or other significant osseous or joint space abnormality is seen on either side. Reading Location: [place] [address] CC: Dr. Kofi Stapleton MD ~ Pathology Technologist: Signed [facility] 08-25-2024 Radiology Diagnostic study note [facility] Imaging Services [address] [place] [address] Hand Min 3 Views MR#: [id number] Acct: [id number] Name: TEMI SCHROEDER Rep #: [id number] : 2000 F 23 From: Girish Aquino MD PCP: Dr. Kofi Stapleton MD Status: RE G CLI Study:Hand Min 3 Views Date of Exam: 04/20 Exam# [id number] Ordering Dr: Kofi Stapleton MD PROCEDURE: HAND MIN 3 VIEWS 08/25/2024 REASON FOR EXAM: PAIN TECHNIQUE: HAND MIN 3 VIEWS COMPARISON: None. RAD/Hand Min 3 Views IMPRESSION: No significant arthritic process or joint narrowing is noted on either side. Satisfactory osseous alignment is seen throughout, bilaterally. No fracture, dislocation, or other significant osseous or joint space abnormality is seen on either side. Reading Location: [place] [address] CC: Dr. Kofi Stapleton MD ~ Pathology Technologist: Signed [facility] 08-25-2024 Radiology Diagnostic study note [facility] Imaging Services [address] [place] [address] Knee 3 Views MR#: [id number] Acct: [id number] Name: TEMI SCHROEDER Rep #: [id number] : 2000 F 23 From: Girish Aquino MD PCP: Dr. Kofi Stapleton MD Status: RE CLI Study:Knee 3 Views Date of Exam: 5 Exam# [id number] Ordering Dr: Kofi Stapleton MD PROCEDURE: KNEE 3 VIEWS 08/25/2024 REASON FOR EXAM: PAIN TECHNIQUE: Three-view right knee series and three-view left knee series (combined dictation). COMPARISON: None. RAD/Knee 3 Views IMPRESSION: No joint effusion is seen on either side. On the left, no arthritic process or joint narrowing is seen. No significant osseous abnormality is evident. On the right, an osteochondroma projects distally from the medial aspect of the proximal right tibial metaphyseal region. No significant arthritic process or joint narrowing is noted. No other significantosseous abnormality is seen Reading Location: [place] [address] CC: Dr. Kofi Stapleton MD ~ Pathology Technologist: Signed [facility] 08-25-2024 Radiology Diagnostic study note [facility] Imaging Services [address] [place], [place] [address] Knee 3 Views MR#: [id number] Acct: [id number] Name: TEMI SCHROEDER Rep #: [id number] : 2000 F 23 From: Girish Aquino MD PCP: Dr. Kofi Stapleton MD Status: [facility] CLI Study:Knee 3 Views Date of Exam: 5 Exam# [id number] Ordering Dr: Kofi Stapleton MD PROCEDURE: KNEE 3 VIEWS 08/25/2024 REASON FOR EXAM: PAIN TECHNIQUE: Three-view right knee series and three-view left knee series (combined dictation). COMPARISON: None. RAD/Knee 3 Views IMPRESSION: No joint effusion is seen on either side. On the left, no arthritic process or joint narrowing is seen. No significant osseous abnormality is evident. On the right, an osteochondroma projects distally from the medial aspect of the proximal right tibial metaphyseal region. No significant arthritic process or joint narrowing is noted. No other significantosseous abnormality is seen Reading Location: [place] [address] CC: Dr. Kofi Stapleton MD ~ Pathology Technologist: Signed [facility] 08-25-2024 Radiology Diagnostic study note [facility] Imaging Services [address] [place] [address] Hips B/L min 2 views w/ Pelvis MR#: [id number] Acct: [id number] Name: TEMI SCHROEDER Rep #: [id number] : 2000 F 23 From: Girish Aquino MD PCP: Dr. Kofi Stapleton MD Status: RE G CLI Study:Hips B/L min 2 views w/ Pelvis Date of Exam: 08/25/24 Exam# [id number] Ordering Dr: Kofi Stapleton MD PROCEDURE: HIPS B/L MIN 2 VIEWS W/ PELVIS 08/25/2024 REASON FOR EXAM: HIP PAIN TECHNIQUE: HIPS B/L MIN 2 VIEWS W/ PELVIS COMPARISON: None. RAD/Hips B/L min 2 views w/ Pelvis IMPRESSION: Hips and sacroiliac joints appear symmetric and within the normal range. No joint narrowing is seen. No evidence of femoral head osteonecrosis. No fracture site is seen. Reading Location: [place] [address] CC: Dr. Kofi Stapleton MD ~ Pathology Technologist: Signed [facility] 07-04-2024 Note HNO ID: [id number] Author: DEVORA BEGUM PA-C Service: ? Author Type: Physician Tick Inspector Type: Progress Notes Filed: 07/04/2024 12:43 Note Text: This note was created using ScanSaferiter. Subjective Temi Schroeder is a 23 year old female. Patient is a 23-year-old female who complains of worsening congestion and sinus pressure that she has been experiencing for the past 1 week. Patient also reports worsening loose cough with chest pressure. Patient denies ear pain or sore throat. Patient reports no fever, chills or myalgia. Patient has no history of asthma and does not smoke. Sinus Problem Associated symptoms include congestion and coughing. Review of Systems HENT: Positive for congestion and sinus pressure. Respiratory: Positive for cough. All other systems reviewed and are negative. Objective BP 122/80 Pulse 104 Temp 36.8 ?C (98.3 ?F) Resp 18 Wt (!) 137.1 kg (302 lb 4 oz) SpO2 98% Physical Exam Vitals and nursing note reviewed. Constitutional: Appearance: Normal appearance. She is normal weight. HENT: Head: Normocephalic and atraumatic. Right Ear: Tympanic membrane, ear canal and external ear normal. Left Ear: Tympanic membrane, ear canal and external ear normal. Nose: Nose normal. Mouth/Throat: Mouth: Mucous membranes are moist. Pharynx: Oropharynx is clear. Eyes: Extraocular Movements: Extraocular movements intact. Conjunctiva/sclera: Conjunctivae normal. Pupils: Pupils are equal, round, and reactive to light. Cardiovascular: Rate and Rhythm: Normal rate and regular rhythm. Pulses: Normal pulses. Heart sounds: Normal heart sounds. Pulmonary: Effort: Pulmonary effort is normal. Breath sounds: Wheezing and rhonchi present. Musculoskeletal: Cervical back: Normal range of motion and neck supple. Skin: General: Skin is warm and dry. Capillary Refill: Capillary refill takes less than 2 seconds. Neurological: General: No focal deficit present. Mental Status: She is alert and oriented to person, place, and time. Psychiatric: Mood and Affect: Mood normal. Behavior: Behavior normal. Thought Content: Thought content normal. Judgment: Judgment normal. Assessment and Plan Physical exam findings as noted above. Patient was provided with prescriptions for doxycycline 100 mg, prednisone 20 mg and Tessalon 100 mg. Supportive care instructions were discussed and the patient verbalizes excellent understanding of same. CLINICAL IMPRESSION: Bronchopneumonia ASSESSMENT/PLAN: 1. Bronchopneumonia - ICD9: 485, ICD10: J18.0 - DOXYCYCLINE HYCLATE 100 MG TABLET - PREDNISONE 20 MG TABLET - BENZONATATE 100 MG CAPSULE MDM Risk of Complications, Morbidity, and/or Mortality Presenting problems: low Diagnostic procedures: low Management options: rose Begum PA-C [facility] 07-04-2024 History of Present illness Narrative This note was created using NoteWriter. Subjective Temi Schroeder is a 23 year old female. Patient is a 23-year-old female who complains of worsening congestion and sinus pressure that she has been experiencing for the past 1 week. Patient also reports worsening loose cough with chest pressure. Patient denies ear pain or sore throat. Patient reports no fever, chills or myalgia. Patient has no history of asthma and does not smoke. Sinus Problem Associated symptoms include congestion and coughing. Review of Systems HENT: Positive for congestion and sinus pressure. Respiratory: Positive for cough. All other systems reviewed and are negative. Objective BP 122/80 Pulse 104 Temp 36.8 C (98.3 F) Resp 18 Wt (!) 137.1 kg (302 lb 4 oz) SpO2 98% Physical Exam Vitals and nursing note reviewed. Constitutional: Appearance: Normal appearance. She is normal weight. HENT: Head: Normocephalic and atraumatic. Right Ear: Tympanic membrane, ear canal and external ear normal. Left Ear: Tympanic membrane, ear canal and external ear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
--- NOTE | 2025-02-05 02:32 | EDS_ITS ---
HPI History of Present Illness Chief Complaint: Allergic Reaction Narrative Narrative: Patient was seen and examined after presenting to ED for evaluation for concern for allergic reaction to Skyrizi which she had on 01/28/2025 that was her first dose she reports that she has been on Benadryl since then whenever the Benadryl wears off she developed an allergic reaction she felt like her tongue was getting large but prior to arrival she reports that it got better she also endorses feeling nauseated denies any new foods or other contact with any other detergents or other substances or drugs since then. PFSH PFSH Medical History Flank pain Anxiety Depression Non-smoker Home Medications ?Medication ?Instructions ?Recorded ?Last Taken ?Type epinephrine 0.3 mg/0.3 mL 0.3 mg (0.3 mL) IM Q10M PRN PRN 02/05/25 Unknown Rx injection, auto-injector (EpiPen anaphylaxis #2 ea 2-Mat) Allergy/AdvReac Type Severity Reaction Status Date / Time No Known Allergies Allergy Verified 02/05/25 01:10 Social History Smoking Status: Never smoker ROS ROS ED ROS Narrative Pertinent Positives: Nausea tongue swelling but now improved concern for allergic reaction to Skyrizi Pertinent Negatives: Difficulty swallowing wheezing vomiting new rash The remainder of review of systems negative unless otherwise stated in the HPI above. Systems reviewed including constitutional, psychiatric, cardiovascular, respiratory, integument, HENT, gastrointestinal. EXAM Physical Exam Narrative Exam Narrative: Afebrile hemodynamically stable oxygenating well her airway is intact oropharynx is clear no lingual or sublingual edema or enlargement of the lips no uvular enlargement or deviation no wheezing no retractions no stridor she has patchy spots of psoriasis scattered across her body but no hives that I can see intact MSPs. Const Vital Signs: 02/05/25 01:05 02/05/25 01:13 Temperature 97 F L Temperature Source Oral Pulse Rate 107 H Respiratory Rate 14 Blood Pressure 140/97 H Blood Pressure Mean 111 Pulse Ox 100 Oxygen Delivery Method Room Air MDM MDM MDM Narrative Medical decision making narrative: Nursing notes, triage notes, available previous documentation, and vital signs were reviewed. Any discrepancies noted were addressed. Differential Diagnoses: Possible could be a delayed hypersensitivity reaction to the Skyrizi at this point in time I do not see need for epinephrine does not seem like she has any other concerns for like an infectious process or anything else that nature low suspicion for PE she does not have angioedema no Alonso's angina Interventions: Benadryl Pepcid Previous Documentation Reviewed: None available or applicable at this time. ED Course: Patient presenting with concerns as stated above I do not see any obvious need for epinephrine at this time we will monitor her for an appropriate duration of the time give her Benadryl and Pepcid and reevaluate. 0330: Went to reevaluate patient she said that she felt better. She has already contacted her event specialist food demonstrator who is managing her Skyrizi and informed them of the situation she will be given return precautions follow-up recommendations she is stable for discharge encouraged the Pepcid and Benadryl. We will still out of an abundance of caution write a prescription for an EpiPen. This note was made utilizing voice recognition software. All attempts were made to correct spelling or other errors prior to note completion. However, due to the fast-paced nature of emergency medicine, some errors may still be present. Discharge Plan Triage Chief Complaint: Allergic Reaction ED Provider: Bessie Lobo Dx/Rx/DC Orders Clinical Impression: Allergic symptoms Instructions: ED Anaphylaxis Prescriptions: New epinephrine [EpiPen 2-Mat] 0.3 mg/0.3 mL auto-injector 0.3 mg IM Q10M PRN PRN (Reason: anaphylaxis) Qty: 2 0RF Rx Instructions: for 2 doses Primary Care Provider: Kofi Stapleton Referrals: Kofi Stapleton MD [Primary Care Provider, Family Practice] Activity Restrictions/Additional Instructions: I recommend taking Benadryl and Pepcid Pepcid you can also buy [id number] under the name famotidine. Out of an abundance of caution we will provide you with a prescription for an EpiPen please use this if you have tongue swelling lip swelling difficulty swallowing or wheezing in preparation to come to the emergency department but please call 911 do [address] have somebody else drive you or attempt to drive yourself. Otherwise follow-up with your doctor Print Language: American Disposition Disposition: Home, Self Care
[2025-02-05 04:19] VITALS: BP 136/90; PULSE 78; RESP 18; TEMP 36.3; O2SAT 96
== END 2025-02-05 04:20 | disposition home or self-care (01) ==
PROVIDERS: Emergency Provider Specialist/Technologist Athletic Trainer; PCP Family Medicine; Visit Provider Specialist/Technologist Athletic Trainer
DX: K13.29 Other disturbances of oral epithelium, including tongue (principal); R11.0 Nausea; T78.40XA Allergy, unspecified, initial encounter
CPT/HCPCS: 99283